=== PATIENT | female | born 1990 | race Caucasian/White ===

== ENCOUNTER → 2019-04-16 08:53 | Outpatient (BNVA) | payer BC, MEDICAID, SELFPAY | PROVIDERS: Visit Provider Nurse Practitioner Women's Health | DX: Z01.419 Encounter for gynecological examination (general) (routine) without abnormal findings (principal); Z72.0 Tobacco use | CPT/HCPCS: 88175 ==

== ENCOUNTER 2019-05-19 15:40 | Emergency (ER) | payer BC, SELFPAY ==
[2019-05-19 16:00] VITALS: BP 135/85; PULSE 80; RESP 16; TEMP 37; O2SAT 100; BMI 29.2
[2019-05-19 19:32] VITALS: BP 126/75; PULSE 77; RESP 16; O2SAT 100
--- NOTE | 2019-05-19 19:59 | CTR_ITS ---
PROCEDURE INFORMATION: Exam: CT Cervical Spine Without Contrast Exam date and time: 05/19/2019 8:37 PM Age: 29 years old Clinical indication: Neck pain; Additional info: Right hand numbness TECHNIQUE: Imaging protocol: Computed tomography images of the cervical spine without contrast. Total DLP: 592.61 mGy-cm Radiation optimization: All CT scans at this facility use at least one of these dose optimization techniques: automated exposure control; mA and/or kV adjustment per patient size (includes targeted exams where dose is matched to clinical indication); or iterative reconstruction. COMPARISON: No relevant prior studies available. FINDINGS: Vertebrae: There is no fracture the cervical spine. There is reversal of cervical curvature. Alignment is otherwise normal. C2-C3: No disc herniation. No spinal canal stenosis. No neural foraminal narrowing. C3-C4: No disc herniation. No spinal canal stenosis. No neural foraminal narrowing. C4-C5: No disc herniation. No spinal canal stenosis. No neural foraminal narrowing. C5-C6: Mild disc bulge. No central or foraminal stenosis. C6-C7: No disc herniation. No spinal canal stenosis. No neural foraminal narrowing. C7-T1: No disc herniation. No spinal canal stenosis. No neural foraminal narrowing. Soft tissues: Unremarkable. Lungs: Lung apices are normal. CT/CT cervical spin wo con* [id number] IMPRESSION: 1. No fracture or acute findings. 2. Mild C5-C6 disc bulge. 3. No central or foraminal stenosis in the cervical Radiation Dose CTDIVOL = (mGy): DLP = 592.61 (mGy-cm)
--- NOTE | 2019-05-19 20:00 | ED_ITS ---
HPI - Neck Pain/Injury General: Chief Complaint: Neck Pain/Injury Stated Complaint: NECK PAIN AND RIGHT ARM PAIN Time Seen by Provider: 05/19/19 19:54 History of Present Illness: HPI Narrative: Complains of neck pain in the right side that extends down to her right pointer finger. States it started a couple weeks ago she drove to [place] and back there was 3 weeks ago. Then she started to have some tingling and neck pain. 1 saw PCP put on prednisone dic lofenac and a muscle relaxer. Is worsened primary care provider sent her to the ER. She has good range of motion of her fingers can does have good feeling in fingers. Pain base and neck on down to the shoulder. MD complaint: neck pain and other (Down right arm) Radiation: right upper extremity Severity: mild and constant Severity scale (1-10): 4 Quality: burning Duration: constant Relieving factors: none Exacerbating factors: none Context: other (No known injury) Associated symptoms: Reports no associated symptoms; Denies headache(s) or nausea Treatments prior to arrival: prescription analgesic Review of Systems Const: Denies: fever, chills or body aches Eyes: Denies: change in vision or blurry vision ENMT: Denies: throat pain or nasal congestion Card: Denies: chest pain or shortness of breath on exertion Resp: Denies: shortness of breath, productive cough or non-productive cough GI: Denies: abdominal pain, nausea or vomiting Musc: Reports: neck pain and extremity pain (Says she has what feels like mild numbness in her fingers) Skin/Breast: Denies: rash Neuro: Denies: headache Psych: Denies: anxiety or depression Anthony/Lymph: Denies: easy bruising PFSH ED PFSH: Medical History Contraceptive management Tobacco use Surgical History (Updated 04/16/19 @ 09:26 by Savannah Jenkins APN, GLORY) H/O arthroscopy of knee (~2009) H/O section 12/14/2015--opted to Repeat; [facility] 11/25/2013--NRFHR; [place] H/O wisdom tooth extraction Social History (Updated 04/16/19 @ 09:27 by Savannah Jenkins APN, GLORY) Smoking and tobacco status: current every day smoker cigarettes Packs smoked per day: 0.5 Quit status (tobacco): has tried quititng Smoking risk assessment/counseling performed?: Yes (referred to PCP ) Tobacco counseling given: provider counseling Alcohol intake: never Physical Exam Const: COMMON NORMALS: no apparent distress, average body habitus and oriented x3 HENMT: COMMON NORMALS: normocephalic HEAD & SCALP: normal to inspection and normocephalic FACE & SINUS: normal facial exam Eye: COMMON NORMALS: conjunctivae normal GENERAL EYE: normal appearance of both eyes CONJUNCTIVA: Yes conjunctivae normal Neck/C-Spine: COMMON NORMALS: no JVD Chest: COMMONS NORMALS: inspection of chest normal Resp: COMMON NORMALS: normal respiratory effort and clear to auscultation bilaterally AUSCULTATION: clear to auscultation bilaterally Cardio: COMMON NORMALS: no JVD, regular rate and regular rhythm RATE: regular rate RHYTHM: regular rhythm GI: COMMON NORMALS: normal to inspection, nondistended, normoactive bowel sounds Extremity: COMMON NORMALS: normal to inspection and full ROM NARRATIVE EXTREMITY EXAM: Patient has tenderness from the base of neck down through the shoulder area has good range of motion of her fingers good feeling good cap refill pain goes down to the shoulder area and down her right arm. Neurologically everything appears intact. GENERAL: Yes normal exam except as noted Neuro: COMMON NORMALS: oriented x3 Course Vital Signs: Vital signs: Vital Signs Temperature 98.6 F 05/19/19 16:00 Pulse Rate 77 05/19/19 19:32 Respiratory Rate 16 05/19/19 19:32 Blood Pressure 126/75 05/19/19 19:32 Pulse Oximetry 100 05/19/19 19:32 Discharge Plan Discharge Condition: Stable Prescriptions: No Action Nexplanon 68 mg implant SUBDERMAL RF: 0 Coding Level of Care Code ED Hearing Screen Coordinator for Chg Christina
[2019-05-19 21:16] VITALS: BP 122/82; PULSE 73; RESP 18; O2SAT 96
== END 2019-05-19 21:16 | disposition home or self-care (01) ==
PROVIDERS: Emergency Provider Nurse Practitioner Family
DX: M54.2 Cervicalgia (principal); M79.601 Pain in right arm; R20.2 Paresthesia of skin; F17.210 Nicotine dependence, cigarettes, uncomplicated
CPT/HCPCS: 12345; 72125; 99281; 99282

== ENCOUNTER 2019-05-28 08:42 | Outpatient (CLI) | payer BC, SELFPAY ==
--- NOTE | 2019-05-28 08:52 | MR_ITS ---
WS: [id number] MRI CERVICAL SPINE HISTORY: CERVICAL DISC DISORDER AT C5-C6 LEVEL WITH RADICULOPATHY COMPARISON: Cervical spine CT 05/19/2019 Straightening with slight reversal normal cervical lordosis. Signal within the cervical cord is normal. Visualized posterior fossa is unremarkable. Craniocervical junction, C1 and C2 relationship, odontoid process and soft tissues are normal. C2-C3: Normal. C3-C4: Normal. C4-C5: Very slight annular disc bulging without stenosis. Slight encroachment upon the ventral thecal sac. C5-C6: Mild annular disc bulge. Shallow central disc protrusion and small bilateral foraminal osteoph ytes. C6-C7: Mild annular disc bulging. Small bilateral foraminal osteophytes. C7-T1: Normal. Paraspinal soft tissue are normal. MR/MR cervical spin wo con* [id number] IMPRESSION: 1. Very small shallow central disc protrusion at C5-6 with mild annular disc b ulging. 2. Near complete effacement of ventral CSF at C4-5 and C5-6 without significan t stenosis.
== END 2019-05-28 08:43 | disposition home or self-care (01) ==
LOC: RADWPI 08:48
PROVIDERS: PCP Nurse Practitioner Family; Visit Provider Nurse Practitioner Family
DX: M50.122 Cervical disc disorder at C5-C6 level with radiculopathy (principal); M50.222 Other cervical disc displacement at C5-C6 level
CPT/HCPCS: 72141

== ENCOUNTER 2019-06-12 14:35 | Outpatient (CLI) | payer BC, SELFPAY ==
--- NOTE | 2019-06-12 15:15 | XR_ITS ---
WS: [id number] LATERAL CERVICAL SPINE: 3 view. Lateral radiographs are performed in upright neutral, flexion and extension to the patient's toleranc e. HISTORY: Neck pain COMPARISON: None available. Straightening and slight reversal normal cervical lordosis centered near C4. Disc spaces and vertebra l body heights are normal. With flexion and extension there is no significant instability. Less than 2 mm retrolisthesis of C2 and C3 during extension. XR/XR cervical spine fl/ex [id number] IMPRESSION: No cervical spine instability.
== END 2019-06-12 14:36 | disposition home or self-care (01) ==
LOC: RADWPI 14:39
PROVIDERS: PCP Nurse Practitioner Family; Visit Provider Licensed Practical Nurse
DX: M54.2 Cervicalgia (principal)
CPT/HCPCS: 72040; 95886; 95908

== ENCOUNTER → 2019-06-19 12:16 | Outpatient (BNVA) | payer BC, MEDICAID, SELFPAY | PROVIDERS: PCP Nurse Practitioner Family; Referring Provider Licensed Practical Nurse; Visit Provider Anesthesiology Pain Medicine | DX: M54.12 Radiculopathy, cervical region (principal); F17.210 Nicotine dependence, cigarettes, uncomplicated; Z79.899 Other long term (current) drug therapy | CPT/HCPCS: 99203; 99204 ==

== ENCOUNTER 2019-06-24 06:00 | Outpatient (RCR) | payer BC, SELFPAY | END 2019-07-03 23:59 | disposition home or self-care (01) | LOC: TPT 06:00 | PROVIDERS: PCP Nurse Practitioner Family; Referring Provider Anesthesiology Pain Medicine; Visit Provider Anesthesiology Pain Medicine | DX: M54.12 Radiculopathy, cervical region (principal); M54.2 Cervicalgia | CPT/HCPCS: 97110; 97140; 97161; 97530; G0283 ==

== ENCOUNTER 2019-07-04 06:00 | Outpatient (RCR) | payer BC, SELFPAY | END 2019-08-03 23:59 | disposition home or self-care (01) | LOC: TPT 06:00 | PROVIDERS: PCP Nurse Practitioner Family; Referring Provider Anesthesiology Pain Medicine; Visit Provider Anesthesiology Pain Medicine | DX: M54.12 Radiculopathy, cervical region (principal); M54.2 Cervicalgia | CPT/HCPCS: 97032; 97110; 97140; 97530; G0283 ==

== ENCOUNTER → 2019-07-14 13:12 | Outpatient (BNVA) | payer BC, SELFPAY | PROVIDERS: PCP Nurse Practitioner Family; Visit Provider Anesthesiology Pain Medicine | DX: M50.020 Cervical disc disorder with myelopathy, mid-cervical region, unspecified level (principal); M54.12 Radiculopathy, cervical region; F17.210 Nicotine dependence, cigarettes, uncomplicated | CPT/HCPCS: 62321; 99213; J1100; J2001 ==

== ENCOUNTER 2019-08-04 06:00 | Outpatient (RCR) | payer BC, SELFPAY | END 2019-09-02 23:59 | disposition home or self-care (01) | LOC: TPT 06:00 | PROVIDERS: PCP Nurse Practitioner Family; Visit Provider Anesthesiology Pain Medicine | DX: M54.12 Radiculopathy, cervical region (principal) | CPT/HCPCS: 97110; 97140; G0283 ==

== ENCOUNTER → 2019-08-12 09:00 | Outpatient (BNVA) | payer BC, SELFPAY | PROVIDERS: PCP Nurse Practitioner Family; Visit Provider Anesthesiology Pain Medicine | DX: M50.020 Cervical disc disorder with myelopathy, mid-cervical region, unspecified level (principal); M54.12 Radiculopathy, cervical region | CPT/HCPCS: 99213 ==

== ENCOUNTER 2019-10-10 11:06 | Emergency (ER) | payer BC, SELFPAY ==
[2019-10-10 11:15] VITALS: BP 139/80; PULSE 96; RESP 18; TEMP 37.1; O2SAT 94; BMI 30.8
--- NOTE | 2019-10-10 11:28 | ED_ITS ---
HPI - Abdominal Pain General: Chief Complaint: Abdominal Pain Stated Complaint: abd pain Time Seen by Provider: 10/10/19 11:22 History of Present Illness: HPI narrative: 29-year-old female comes in complaining abdominal pain she has had this off and on for about the last 2 years she gets nauseous with it no vomiting or diarrhea begins in the epigastric right upper quadrant area and radiates around to her back in both directions she is not had any shortness of breath so had a recent upper respiratory infection she has had quite a bit of reflux she has not been taking much for this. She denies any acholic stools she does get some bilious vomit at times. MD elicited complaint: abdominal pain Pertinent past history: other (Persistent abdominal pain for the last 2 years intermittent) Onset (ago): year(s) (2) Pain Consistency: intermittent Location: Epigastric and RUQ Quality: cramping Radiation: bilateral flank and back Migration to: no migration Exacerbating factors: nothing Relieving factors: nothing Context: recent surgery/procedure Associated Symptoms: Denies bloating, chills, coffee ground emesis, constipation, diarrhea, dysuria, fever(s), hematochezia, hematemesis, melena, nausea and vomiting Review of Systems Const: Denies: fever(s), chills, body aches, change in appetite, fatigue or malaise ENMT: Denies: throat pain, ear or mastoid pain, nasal discharge or nasal congestion Card: Denies: chest pain, edema, dyspnea on exertion or orthopnea Resp: Denies: dyspnea, productive cough or non-productive cough GI: Denies: abdominal pain, nausea, vomiting, hematemesis, coffee ground emesis, diarrhea, constipation, bloating, hematochezia or melena : Denies: flank pain, difficulty voiding, dysuria, urinary frequency or urinary urgency Skin/Breast: Denies: rash or pruritus PFSH ED PFSH: Medical History Cervical disc disorder with myelopathy of mid-cervical region Contraceptive management Tobacco use Surgical History H/O arthroscopy of knee (~2009) H/O section 12/14/2015--opted to Repeat; [facility] 11/25/2013--NRFHR; [place] H/O wisdom tooth extraction Family History Mother Hypertension Family history of thyroid problem Grandmother Family history of thyroid problem MATERNAL Family/Other Family history of thyroid problem MATERNAL AUNT Patient denies medical problems Diabetes Mellitus, Heart Disease, Stroke, Hypercholesterolemia, Breast Cancer, Ovarian Cancer, Uterine Cancer, Colon Cancer Social History Smoking and tobacco status: former smoker Quit status (tobacco): has quit using tobacco Former quit date comment: JULY 0303/2019 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 Alcohol intake: never Household members: spouse and children Marital status: 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 History of recent travel: No Physical Exam Const: COMMON NORMALS: no acute distress GENERAL APPEARANCE: cooperative and comfortable ORIENTATION/CONSCIOUSNESS: Yes awake, Yes oriented to person, Yes oriented to place and Yes oriented to time HENMT: COMMON NORMALS: normocephalic and atraumatic HEAD & SCALP: normocephalic and atraumatic Eye: COMMON NORMALS: Equal, round and reactive pupils present, EOMs intact bilaterally, conjunctivae normal and no scleral icterus CONJUNCTIVA: Yes conjunctivae normal PUPIL: Yes Equal, round and reactive pupils present Neck/C-Spine: COMMON NORMALS: full ROM, no lymphadenopathy, supple and no JVD Lymph: LYMPHATIC: no lymphadenopathy noted and no lymphedema noted Resp: COMMON NORMALS: normal respiratory effort, No retractions, No use of accessory muscles and clear to auscultation bilaterally AUSCULTATION: clear to auscultation bilaterally Cardio: COMMON NORMALS: no JVD, regular rate, regular rhythm and No murmurs present (Cardio) RATE: regular rate RHYTHM: regular rhythm GI: COMMON NORMALS: Soft to palpation and No hepatosplenomegaly present AUSCULTATION: Yes normoactive bowel sounds PALPATION: Yes Soft to palpation, No Tenderness to palpation present (GI), No Guarding due to palpation present (GI) and Yes No hepatosplenomegaly present Extremity: COMMON NORMALS: normal to inspection, capillary refill normal, no clubbing, cyanosis or edema, no calf tenderness and no pedal edema Neuro: SENSORIUM/ORIENTATION: Yes oriented to person, Yes oriented to place and Yes oriented to time Skin: COMMON NORMALS: no rashes or lesions noted GENERAL SKIN EXAM: no rashes or lesions noted Course Vital Signs: Vital signs: Vital Signs Temperature 98.7 F 10/10/19 11:15 Pulse Rate 91 10/10/19 13:05 Respiratory Rate 18 10/10/19 13:05 Blood Pressure 132/76 10/10/19 13:05 Pulse Oximetry 94 10/10/19 13:05 MDM - Abdominal Pain MDM Narrative: Medical decision making narrative: Discussed findings with the patient. She has had this going on for some time is nothing acute that I can identify at this time I do think she requires further evaluation including EGD and possible HIDA scan will refer to surgery return if she has further problems start pantoprazole to try to alleviate symptoms. Lab Data: Labs: Lab Results 10/10/19 10/10/19 10/10/19 Range/Units 11:31 11:31 11:45 WBC 8.1 (4.0-10.0) 10^3/ uL RBC 4.65 (4.1-5.3) 10^6/u L Hgb 13.3 (11.5-15.3) g/dL Hct 40.7 (37.0-47.0) % MCV 87.5 (81-99) fL MCH 28.6 (28.0-34.0) pg MCHC 32.7 (30.0-36.0) g/dL RDW 11.8 L (12.1-15.1) % Plt Count 243 (130-400) 10^3/c mm MPV 11.0 H (7.4-10.4) fL Neut % (Auto) 68.2 % Lymph % (Auto) 23.1 % [place] % (Auto) 6.0 % Eos % (Auto) 2.0 % Baso % (Auto) 0.5 % Neut # (Auto) 5.49 (1.8-7.7) 10^3/u L Lymph # (Auto) 1.9 (0.8-4.8) 10^3/u L [place] # (Auto) 0.5 (0.2-0.9) 10^3/u L Eos # (Auto) 0.2 (0.0-0.8) 10^3/u L Baso # (Auto) 0.0 (0.0-0.1) 10^3/u L Nucleated RBC % (a uto) 0 % Nucleated RBCs # 0.0 /100WBC Sodium (136-145) mmol/L Potassium (3.5-5.1) mmol/L Chloride (98-107) mmol/L Carbon Dioxide (22-29) mmol/L Anion Gap (5-19) BUN (6-20) mg/dL Creatinine (0.5-0.9) mg/dL GFR Calculation (90-130) mL/min Glucose (65-115) mg/dL Calculated Osmolal ity (285-295) mOsm/k g Calcium (8.5-10.5) mg/dL Total Bilirubin (0.15-1.2) mg/dL AST (0-32) U/L ALT (0-33) U/L Alkaline Phosphata se (35-105) IU/L Total Protein (6.6-8.7) g/dL Albumin (3.5-5.2) g/dL Globulin (1.3-4.6) g/dL Lipase (13-60) U/L HCG, Qual Negative (Negative) Urine Color Yellow (Yellow) Urine Appearance Clear (CLEAR) Urine pH 5 (5-7) Ur Specific Gravit y 1.010 (1.005-1.030) Urine Protein Neg (Negative) Urine Glucose (UA) Norm (Normal) Urine Ketones Negative (Negative) Urine Blood Neg (Negative) Urine Nitrate Negative (Negative) Urine Bilirubin Neg (NEGATIVE) Urine Urobilinogen Neg (Negative) mg/dL Ur Leukocyte Nayla ase Negative (Negative) 10/10/19 Range/Units 11:45 WBC (4.0-10.0) 10^3/ uL RBC (4.1-5.3) 10^6/u L Hgb (11.5-15.3) g/dL Hct (37.0-47.0) % MCV (81-99) fL MCH (28.0-34.0) pg MCHC (30.0-36.0) g/dL RDW (12.1-15.1) % Plt Count (130-400) 10^3/c mm MPV (7.4-10.4) fL Neut % (Auto) % Lymph % (Auto) % [place] % (Auto) % Eos % (Auto) % Baso % (Auto) % Neut # (Auto) (1.8-7.7) 10^3/u L Lymph # (Auto) (0.8-4.8) 10^3/u L [place] # (Auto) (0.2-0.9) 10^3/u L Eos # (Auto) (0.0-0.8) 10^3/u L Baso # (Auto) (0.0-0.1) 10^3/u L Nucleated RBC % (a uto) % Nucleated RBCs # /100WBC Sodium 137 (136-145) mmol/L Potassium 3.9 (3.5-5.1) mmol/L Chloride 105 (98-107) mmol/L Carbon Dioxide 24 (22-29) mmol/L Anion Gap 11.9 (5-19) BUN 9 (6-20) mg/dL Creatinine 0.8 (0.5-0.9) mg/dL GFR Calculation 84.2 L (90-130) mL/min Glucose 84 (65-115) mg/dL Calculated Osmolal ity 279 L (285-295) mOsm/k g Calcium 9.8 (8.5-10.5) mg/dL Total Bilirubin 0.2 (0.15-1.2) mg/dL AST 16 (0-32) U/L ALT 16 (0-33) U/L Alkaline Phosphata se 93 (35-105) IU/L Total Protein 6.7 (6.6-8.7) g/dL Albumin 4.5 (3.5-5.2) g/dL Globulin 2.2 (1.3-4.6) g/dL Lipase 28 (13-60) U/L HCG, Qual (Negative) Urine Color (Yellow) Urine Appearance (CLEAR) Urine pH (5-7) Ur Specific Gravit y (1.005-1.030) Urine Protein (Negative) Urine Glucose (UA) (Normal) Urine Ketones (Negative) Urine Blood (Negative) Urine Nitrate (Negative) Urine Bilirubin (NEGATIVE) Urine Urobilinogen (Negative) mg/dL Ur Leukocyte Nayla ase (Negative) Discharge Plan Discharge Patient Disposition: Home Clinical Impression: Chronic gastroesophageal reflux disease, Biliary dyskinesia Condition: Stable Prescriptions: New Zofran 4 mg tablet 4 mg PO Q6H PRN (Reason: nausea and vomiting) Qty: 20 RF: 0 pantoprazole 40 mg tablet,delayed release (DR/EC) 40 mg PO QAM 56 Days Qty: 56 RF: 0 No Action Nexplanon 68 mg implant See Rx Instructions .ROUTE .COMPLEX RF: 0 Discharge Orders: Discharge Order (Routine); Ordered 10/10/19 Ordered By: Wang Sullivan Referrals: Siria De La Torre FNP [Primary Care Provider] - Discharge Diet: Clear Liquid Discharge Activity: Increase activity as tolerated Patient Instructions: Clear Liquid Diet (ED) Activity Restrictions/Additional Instructions: Case management will call to get you set up to see a surgeon for an EGD and possible HIDA scan Clear liquid diet for 24 to 48 hours then advance as tolerated avoid spicy foods meats tomato based products citrus fruits. Discharge Date/Time: 10/10/19 13:08 Coding Level of Care Code ED Safety Representative for Efreng Fwd Exam Comprehensive
[2019-10-10 11:35] LABS: Add Urine Microscopic? NO
[2019-10-10 11:39] LABS: HCG Qualitative Urine. Negative (Negative)
--- NOTE | 2019-10-10 11:39 | US_ITS ---
WS: [id number] RIGHT UPPER QUADRANT ULTRASOUND HISTORY: epigastric/RUQ pain radiating into back COMPARISON: None available. Liver: 14.1 cm in length. Normal size and echogenicity with no intrahepatic dilatation. No mass. Gallbladder: Mildly contracted gallbladder. No stones identified. CBD: 0.2 cm Pancreas: Normal size and echogenicity. Right kidney: 9.0 cm in length. Normal echogenicity with no mass or hydronephrosis. Aorta and IVC: Unremarkable. No ascites. US/US gall bladder [id number] IMPRESSION: Slightly contracted gallbladder. Otherwise negative.
[2019-10-10 11:40] LABS: Bilirubin Urine Neg (NEGATIVE); Blood Urine Neg (Negative); Glucose Urine UA Norm (Normal); Ketones Urine Negative (Negative); Leukocyte Esterase Urine Negative (Negative); Nitrate Urine Negative (Negative); Protein Urine Neg (Negative); Urine Appearance Clear (CLEAR); Urine Color Yellow (Yellow); Urobilinogen Urine Neg (Negative); pH Urine 5 (5-7)
[2019-10-10 11:55] LABS: Basophils % 0.5 %; Eosinophils # 0.2 10^3/uL (0.0-0.8); Hematocrit 40.7 % (37.0-47.0); Hemoglobin 13.3 g/dL (11.5-15.3); Lymphocytes # 1.9 10^3/uL (0.8-4.8); Lymphocytes % 23.1 %; Mean Corpuscular HGB Conc 32.7 g/dL (30.0-36.0); Mean Corpuscular Hemoglobin 28.6 pg (28.0-34.0); Mean Corpuscular Volume 87.5 fL (81-99); Monocytes # 0.5 10^3/uL (0.2-0.9); Neutrophils # 5.49 10^3/uL (1.8-7.7); Neutrophils % 68.2 %; Nucleated Red Blood Cells % 0 %; Platelet Count 243 10^3/cmm (130-400); Red Blood Count 4.65 10^6/uL (4.1-5.3); Red Cell Distribution Width 11.8 % (12.1-15.1); White Blood Count 8.1 10^3/uL (4.0-10.0)
[2019-10-10] MEDS: sodium chloride 0.9% 1,000 ML 999 ML IV (12:03)
[2019-10-10 12:06] VITALS: RESP 18
[2019-10-10] MEDS: morphine 4 mg/mL SDV 1 mL 6 MG IVP (12:06)
[2019-10-10] MEDS: ondansetron 2 mg/ML SDV 2 mL 4 MG IVP (12:07)
[2019-10-10] MEDS: lidocaine 2% viscous 15 ML, aluminum-mag hydrox-simethicon 30 ML, sucralfate oral liq 1 GM PO (12:08)
[2019-10-10 12:12] LABS: Alanine Aminotransferase 16 U/L (0-33); Albumin Level 4.5 g/dL (3.5-5.2); Alkaline Phosphatase 93 IU/L (35-105); Anion Gap 11.9 (5-19); Aspartate Amino Transferase 16 U/L (0-32); Blood Urea Nitrogen 9 mg/dL (6-20); Calcium 9.8 mg/dL (8.5-10.5); Carbon Dioxide 24 mmol/L (22-29); Chloride 105 mmol/L (98-107); Globulin 2.2 g/dL (1.3-4.6); Glomerular Filtration Rate 84.2 mL/min (90-130); Glucose 84 mg/dL (65-115); Lipase 28 U/L (13-60); Osmolality Calculated 279 mOsm/kg (285-295); Potassium 3.9 mmol/L (3.5-5.1); Sodium 137 mmol/L (136-145); Total Bilirubin 0.2 mg/dL (0.15-1.2); Total Protein 6.7 g/dL (6.6-8.7)
--- NOTE | 2019-10-10 12:55 | PC.NURSE ---
US completed patient tolerated well
[2019-10-10 13:05] VITALS: BP 132/76; PULSE 91; RESP 18; O2SAT 94
--- NOTE | 2019-10-13 12:41 | DCPLANNER ---
project management manager had message to schedule a follow up appointment for patient with general surgery. project management manager called [facility], gave clinic patients information. project management manager was told that patients information would be printed and reviewed. Clinic will call patient with appointment information.
--- NOTE | 2019-10-16 10:52 | DCPLANNER ---
Patient has a follow up appointment scheduled for , October 16, 2019 at 2:[address] Sharp. Clinic will call patient with appointment information.
--- NOTE | 2019-10-23 12:20 | DCPLANNER ---
Patient did attend appointment scheduled for 10.16.19 with Shuttle Veneering Supervisor.
== END 2019-10-10 13:08 | disposition home or self-care (01) ==
PROVIDERS: Emergency Medicine; Emergency Provider Family Medicine; PCP Nurse Practitioner Family
DX: K21.9 Gastro-esophageal reflux disease without esophagitis (principal); K82.8 Other specified diseases of gallbladder; Z87.891 Personal history of nicotine dependence
CPT/HCPCS: 12345; 36415; 76705; 80053; 81003; 81025; 83690; 85025; 96361; 96374; 96375; 99282; 99284; J2270; J2405; J7030

== ENCOUNTER 2019-10-31 09:28 | Outpatient (CLI) | payer BC, SELFPAY ==
--- NOTE | 2019-10-31 10:00 | NM_ITS ---
WS: [id number] NUCLEAR MEDICINE HIDA SCAN CLINICAL INFORMATION: epigastric pain TECHNIQUE: Following intravenous administration of 7.8 mCi of technetium 99m mebrofenin, images of th e abdomen were obtained over the course of 60 minutes. Next, gallbladder ejection fraction was determ ined by obtaining preprandial and one-hour postprandial images of the gallbladder following oral carmelo stion of Ensure. COMPARISON: None. FINDINGS: Normal hepatic uptake at 5 minutes. Gallbladder is visualized by 15 minutes. No evidence of acute cho lecystitis. Normal common bile duct. No evidence of choledocholithiasis. Normal small bowel activity. Gallbladder ejection fraction 58% within normal limits. No evidence of chronic cholecystitis. NM/NM hepatobiliary w phar* [id number] IMPRESSION: 1. No evidence of acute or chronic cholecystitis. 2. Gallbladder ejection fraction 58% within normal limits.
== END 2019-10-31 09:29 | disposition home or self-care (01) ==
LOC: NM 09:29
PROVIDERS: PCP Nurse Practitioner Family; Visit Provider Surgery
DX: R10.13 Epigastric pain (principal); Z20.828 Contact with and (suspected) exposure to other viral communicable diseases
CPT/HCPCS: 78227; 87635; A9537

== ENCOUNTER 2019-11-04 07:03 | Day surgery (SDC) | payer BC, SELFPAY ==
[2019-10-31 08:40] VITALS: BMI 29.2
[2019-11-04 07:29] VITALS: BP 108/67; PULSE 73; RESP 18; TEMP 36.1; O2SAT 99
[2019-11-04] MEDS: sodium chloride 0.9% 1,000 ML 30 ML IV (07:37)
[2019-11-04 07:38] LABS: OR HCG Qualitative Urine Negative (Negative)
--- NOTE | 2019-11-04 07:44 | P.ANESASSM_ITS ---
Pre-Anesthetic Assessment Pre-Anesthetic Assessment: Height/Weight: Height 1.52 m Weight 68.039 kg Temp Pulse Resp BP Pulse Ox 97 F L 73 18 108/67 99 11/04/19 07:29 11/04/19 07:29 11/04/19 07:29 11/04/19 07:29 11/04/19 07:29 Preop Diagnosis: pain Proposed Procedure: Operation Date: 11/04/19 08:00 Proposed Procedures p EGD 01224 R10.13(Not Applicable) - Domingo Sharp MD Familial anesthetic complications: None Last intake: Intake Last Liquid Date 11/03/19 Last Liquid Time 21:30 Last Solid Date 11/03/19 Last Solid Time 18:00 Social: Social History: No alcohol and No tobacco Exam: Pre-Anes Outpt Exam: alert, oriented x 3, clear to auscultation bilaterally and regular rate & rhythm Airway: Cervical ROM: WNL MP: 2 Dentition: Full GI: GI: GERD Anesthetic Plan: ASA status: 1 Anesthesia: MAC Risk of > 500 ml blood loss (7ml/kg in children): No Meds/Allergies Current Medications: Current Medications Generic Name Dose Route Start Last Admin Trade Name Freq PRN Reason Stop Dose Admin Sodium Chloride 1,000 mls @ 30 ml s/hr 11/04/19 07:15 11/04/19 07:37 Sodium Chloride 0.9% IV 11/05/19 07:14 30 mls/hr .Q24H CHARITY Administration PFSH Anesthesia PFSH: Medical History (Updated 10/18/19 @ 00:01 by ) Cervical disc disorder with myelopathy of mid-cervical region Surgical History H/O arthroscopy of knee (~2009) H/O section 12/14/2015--opted to Repeat; [facility] 11/25/2013--NRFHR; [place] H/O wisdom tooth extraction Family History Mother Hypertension Family history of thyroid problem Clotting disorder Grandmother Family history of thyroid problem MATERNAL Family/Other Family history of thyroid problem MATERNAL AUNT Patient denies medical problems Diabetes Mellitus, Heart Disease, Stroke, Hypercholesterolemia, Breast Cancer, Ovarian Cancer, Uterine Cancer, Colon Cancer Denies family history of Anesthesia complication Bleeding disorder Social History Smoking and tobacco status: former smoker Quit status (tobacco): has quit using tobacco Former quit date comment: JULY 0303/2019 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 Alcohol intake: never Household members: spouse and children Marital status: 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
--- NOTE | 2019-11-04 08:00 | W.PM.OPSUD ---
Surgery/Procedure H&P Update DATE OF PROCEDURE: November 04, 2019 DATE H&P PERFORMED: 10/16/19 H&P UPDATE INFORMATION: I have reviewed H&P completed within last 30 days, I have examined patient prior to procedure and No changes to prior documentation PREOP DIAGNOSIS: pain PLANNED PROCEDURE: Operation Date: 11/04/19 08:00 Proposed Procedures p EGD 35826 R10.13(Not Applicable) - Domingo Sharp MD
[2019-11-04 08:10] VITALS: BP 95/62; PULSE 73; RESP 16; TEMP 36.6; O2SAT 97
[2019-11-04 08:18] VITALS: BP 117/84; PULSE 76; RESP 16; TEMP 36.6; O2SAT 97
--- NOTE | 2019-11-04 08:52 | ANE.PACU2 ---
Inpatient post-anesthesia follow up: Airway intact: Yes Vital signs: Temperature 98 F Pulse Rate 76 Respiratory Rate 16 Blood Pressure 117/84 Pulse Oximetry 97 Oxygen Delivery Me thod Room Air Oxygen Flow Rate 2 Fraction of Inspir ed Oxygen Hydration adequate: Yes Nausea and vomiting: No Mental status: Baseline
== END 2019-11-04 08:35 | disposition home or self-care (01) ==
PROVIDERS: Anesthesiology; PCP Nurse Practitioner Family; Visit Provider Surgery
PROC: 0DJ08ZZ Inspection of Upper Intestinal Tract, Via Natural or Artificial Opening Endoscopic (ICD-10-PCS; CPT 43235; principal; 2019-11-04 08:00)
DX: R10.13 Epigastric pain (principal); K21.9 Gastro-esophageal reflux disease without esophagitis; Z87.891 Personal history of nicotine dependence
CPT/HCPCS: 12345; 43235; 81025; 84703; J2704; J3010; J7030

== ENCOUNTER → 2019-11-14 08:56 | Outpatient (BNVA) | payer BC, SELFPAY | PROVIDERS: PCP Nurse Practitioner Family; Visit Provider Internal Medicine | DX: Z11.59 Encounter for screening for other viral diseases (principal) | CPT/HCPCS: 87635 ==

== ENCOUNTER 2019-11-17 06:40 | Day surgery (SDC) | payer BC, SELFPAY ==
[2019-11-14 12:45] VITALS: BMI 30.2
[2019-11-17] VITALS (9 sets, daily range): BP systolic 112–135; BP diastolic 69–83; PULSE 60–76; RESP 18–20; TEMP 36.5–37; O2SAT 94–100
[2019-11-17 07:11] LABS: OR HCG Qualitative Urine Negative (Negative)
[2019-11-17] MEDS: sodium chloride 0.9% 1,000 ML 30 ML IV (07:12)
--- NOTE | 2019-11-17 07:55 | ANES.PREANE2 ---
Pre-Anesthetic Assessment Pre-Anesthetic Assessment: Height/Weight: Height 1.52 m Weight 70.307 kg Temp Pulse Resp BP Pulse Ox 98.1 F 72 18 135/78 98 11/17/19 07:00 11/17/19 07:00 11/17/19 07:00 11/17/19 07:00 11/17/19 07:00 Preop Diagnosis: Chronic cholecystitis Proposed Procedure: Operation Date: 11/17/19 08:15 Proposed Procedures p Laparoscopic Cholecystectomy 49076 K82.9(Not Applicable) - Domingo Sharp MD Familial anesthetic complications: None Was Beta Karen taken within 24 hours: N/A Last intake: Intake Last Liquid Date 11/16/19 Last Liquid Time 21:30 Last Solid Date 11/16/19 Last Solid Time 21:30 Social: Social History: No alcohol and No tobacco Comment: former smoker Exam: Pre-Anes Outpt Exam: alert, oriented x 3, clear to auscultation bilaterally and regular rate & rhythm Airway: Cervical ROM: WNL MP: 3 Dentition: Full Musc/skel: Comments: neck pain Anesthetic Plan: ASA status: 1 Anesthesia: General Risk of > 500 ml blood loss (7ml/kg in children): No Meds/Allergies Current Medications: Current Medications Generic Name Dose Route Start Last Admin Trade Name Freq PRN Reason Stop Dose Admin Sodium Chloride 1,000 mls @ 30 ml s/hr 11/17/19 07:00 11/17/19 07:12 Sodium Chloride 0.9% IV 11/18/19 06:59 30 mls/hr .Q24H CHARITY Administration PFSH Anesthesia PFSH: Medical History Cervical disc disorder with myelopathy of mid-cervical region Surgical History H/O arthroscopy of knee (~2009) H/O section 12/14/2015--opted to Repeat; [facility] 11/25/2013--NRFHR; [place] H/O esophagogastroduodenoscopy (11/04/19) normal H/O wisdom tooth extraction Family History Mother Hypertension Family history of thyroid problem Clotting disorder Grandmother Family history of thyroid problem MATERNAL Family/Other Family history of thyroid problem MATERNAL AUNT Patient denies medical problems Diabetes Mellitus, Heart Disease, Stroke, Hypercholesterolemia, Breast Cancer, Ovarian Cancer, Uterine Cancer, Colon Cancer Denies family history of Anesthesia complication Bleeding disorder Social History Smoking and tobacco status: former smoker Quit status (tobacco): has quit using tobacco Former quit date comment: JULY 0303/2019 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 Alcohol intake: never Household members: spouse and children Marital status: 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
--- NOTE | 2019-11-17 08:48 | W.PM.OPSUD ---
Surgery/Procedure H&P Update DATE OF PROCEDURE: November 17, 2019 DATE H&P PERFORMED: 10/16/19 H&P UPDATE INFORMATION: I have reviewed H&P completed within last 30 days, I have examined patient prior to procedure and No changes to prior documentation PREOP DIAGNOSIS: Chronic cholecystitis PLANNED PROCEDURE: Operation Date: 11/17/19 08:15 Proposed Procedures p Laparoscopic Cholecystectomy 49829 K82.9(Not Applicable) - Domingo Sharp MD
--- NOTE | 2019-11-17 10:02 | SUR.PHASEI ---
0958- ORAL AIRWAY OUT, SIMPLE MASK AT 6LPM, SAT 100%
[2019-11-17] MEDS: ondansetron 2 mg/ML SDV 2 mL 4 MG IVP (10:16)
--- NOTE | 2019-11-17 10:32 | ANE.PACU2 ---
Inpatient post-anesthesia follow up: Airway intact: Yes Vital signs: Temperature 98.6 F Pulse Rate 64 Respiratory Rate 18 Blood Pressure 118/75 Pulse Oximetry 97 Oxygen Delivery Me thod Room Air Oxygen Flow Rate 6 Fraction of Inspir ed Oxygen Hydration adequate: Yes Nausea and vomiting: No Pain level: 4 Mental status: Baseline
[2019-11-17] MEDS: HYDROcodone-acetaminophen 5-325 mg Tablet 1 TAB PO (10:35)
--- NOTE | 2019-11-17 11:27 | P.OP_ITS ---
Operative Report Date of procedure: November 17, 2019 Pre-op Diagnosis: Chronic cholecystitis Post-op diagnosis: same Procedure Done: Laparoscopic cholecystectomy Specimens removed/disposition: Gallbladder Surgeon: Domingo Sharp Anesthesia: General Estimated blood loss (mL): 5 Condition: stable Disposition: PACU Procedure: The patient was taken to the operating room and was intubated under general anesthesia. After the antibiotic had been administered, the abdomen was prepped and draped in a sterile manner. Using a #15 blade, a 1 centimeter infraumbilical curvilinear incision was made and using an open Marek technique the peritoneal cavity was entered. A 10 millimeter port was placed and 15 millimeters of pneumoperitoneum was created. A 10 millimeter, 30 degrees scope was then introduced. Three 5 millimeter ports were placed in the epigastric, midclavicular and the anterior axillary line two fingerbreadths below the costal margin on the right side under the direct visualization. Ratcheted forceps were introduced into the lateral most port and was used to retract the fundus of the gallbladder cephalad and using forceps the infundibulum of the gallbladder was retracted laterally. Using L-hook cautery the peritoneum overlying the Calot's triangle was opened medially and laterally until the cystic duct and the cystic artery were skeletonized. Dissection was carried along the body of the gallblad micki and after ensuring critical view of safety, 4 clips applied on the cystic duct and 3 clips applied on the cystic artery and cut leaving, 3 clips on the remaining portion of the duct and 2 clips on the remaining portion of the artery. The rest of the gallbladder was dissected off the liver using L-hook cautery. There was no bleeding or bile leaking noted from the gallbladder fossa and the clips appeared to be in place. An EndoCatch bag was introduced to remove the gallbladder. All the ports were removed under direct visualization and there was no bleeding noted from the port sites. The fascia of the umbilicus was closed using [id number] 0 Vicryl sutures and the subcutaneous tissue was approximated using 3-0 Vicryl sutures. The skin at all four ports were closed using 4-0 Monocryl and Dermabond. A total of 10 millimeters of 0.5% Marcaine was infiltrated around the port sites. The patient was stable throughout the procedure.
== END 2019-11-17 11:30 | disposition home or self-care (01) ==
PROVIDERS: Anesthesiology; PCP Nurse Practitioner Family; Visit Provider Surgery
PROC: 0FT44ZZ Resection of Gallbladder, Percutaneous Endoscopic Approach (ICD-10-PCS; CPT 47562; principal; 2019-11-17 08:15)
DX: K81.1 Chronic cholecystitis (principal); Z87.891 Personal history of nicotine dependence
CPT/HCPCS: 47562; 12345; 81025; 84703; 88304; 96365; 96372; 96374; J0690; J1100; J1885; J2405; J2704; J2710; J3010; J3490; J7030

== ENCOUNTER 2019-11-17 15:40 | Emergency (ER) | payer BC, SELFPAY ==
[2019-11-17 15:51] VITALS: BP 139/93; PULSE 92; RESP 14; TEMP 36.7; O2SAT 98; BMI 25.7
--- NOTE | 2019-11-17 16:01 | W.ED.ABDPA2 ---
Documented by User: CHERELLE Gardiner 11/21/19 07:04 HPI - Abdominal Pain General: Chief Complaint: Abdominal Pain Stated Complaint: ABDOMEN PAIN POST SURGERY Time Seen by Provider: 11/17/19 16:01 History of Present Illness: HPI narrative: Patient states he was released from the hospital this morning with abdominal pain. She said she was told it was just gas was given a pain pill before she left. did not chart picker pain medication to later this afternoon and gave her a pill did not help she is in a lot of pain she states patient instructed by Dr. Sharp nurse to come and check into the ER patient states she has had problems with her bowels last few weeks MD elicited complaint: abdominal pain Pertinent past history: other (Gallbladder removed yesterday) Onset (ago): hour(s) Pain Consistency: constant Location: Periumbilical Severity: severe Quality: aching and fullness Radiation: none Migration to: no migration Exacerbating factors: movement Relieving factors: nothing Context: recent surgery/procedure Associated Symptoms: Reports no associated symptoms; Denies chills, fever(s), nausea and vomiting Review of Systems Const: Denies: fever(s), chills or body aches Eyes: Denies: change in vision or blurry vision ENMT: Denies: throat pain or nasal congestion Card: Denies: chest pain or dyspnea on exertion Resp: Denies: dyspnea, productive cough or non-productive cough GI: Reports: abdominal pain; Denies: nausea or vomiting Musc: Denies: extremity pain Skin/Breast: Denies: rash Neuro: Denies: headache(s) Psych: Denies: anxiety or depression Anthony/Lymph: Denies: easy bruising PFSH ED PFSH: Medical History (Updated 11/17/19 @ 21:32 by DONAVON Yao) Cervical disc disorder with myelopathy of mid-cervical region Surgical History (Updated 11/17/19 @ 08:58 by Domingo Sharp MD) H/O arthroscopy of knee (~2009) H/O section 12/14/2015--opted to Repeat; [facility] 11/25/2013--NRFHR; [place] H/O esophagogastroduodenoscopy (11/04/19) normal H/O wisdom tooth extraction Status post laparoscopic cholecystectomy (11/17/19) Family History Mother Hypertension Family history of thyroid problem Clotting disorder Grandmother Family history of thyroid problem MATERNAL Family/Other Family history of thyroid problem MATERNAL AUNT Patient denies medical problems Diabetes Mellitus, Heart Disease, Stroke, Hypercholesterolemia, Breast Cancer, Ovarian Cancer, Uterine Cancer, Colon Cancer Denies family history of Anesthesia complication Bleeding disorder Social History Smoking and tobacco status: former smoker Quit status (tobacco): has quit using tobacco Former quit date comment: JULY 0303/2019 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 Alcohol intake: never Household members: spouse and children Marital status: 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 History of recent travel: No Physical Exam Const: COMMON NORMALS: no acute distress, average body habitus and patient oriented x3 HENMT: COMMON NORMALS: normocephalic HEAD & SCALP: normal to inspection and normocephalic FACE & SINUS: normal facial exam Eye: COMMON NORMALS: conjunctivae normal GENERAL EYE: appearance normal, both eyes and all related structures CONJUNCTIVA: Yes conjunctivae normal Neck/C-Spine: COMMON NORMALS: no JVD Chest: COMMONS NORMALS: normal inspection of the chest Resp: COMMON NORMALS: normal respiratory effort and clear to auscultation bilaterally AUSCULTATION: clear to auscultation bilaterally Cardio: COMMON NORMALS: no JVD, regular rate and regular rhythm RATE: regular rate RHYTHM: regular rhythm GI: AUSCULTATION: Yes Hypoactive bowel sounds present PALPATION: Yes Tenderness to palpation present (GI) Extremity: COMMON NORMALS: normal to inspection and full ROM Neuro: COMMON NORMALS: patient oriented x3 Course Vital Signs: Vital signs: Vital Signs Temperature 97.6 F 11/17/19 17:40 Pulse Rate 79 11/17/19 17:40 Respiratory Rate 18 11/17/19 17:40 Blood Pressure 128/74 11/17/19 17:40 Pulse Oximetry 98 11/17/19 17:40 MDM - Abdominal Pain Lab Data: Labs: Lab Results 11/17/19 11/17/19 Range/Units 16:10 16:10 WBC 15.8 H (4.0-10.0) 10^3/ uL RBC 4.80 (4.1-5.3) 10^6/u L Hgb 13.9 (11.5-15.3) g/dL Hct 42.2 (37.0-47.0) % MCV 87.9 (81-99) fL MCH 29.0 (28.0-34.0) pg MCHC 32.9 (30.0-36.0) g/dL RDW 12.4 (12.1-15.1) % Plt Count 246 (130-400) 10^3/c mm MPV 11.6 H (7.4-10.4) fL Neut % (Auto) 94.9 % Lymph % (Auto) 4.0 % [place] % (Auto) 0.6 % Eos % (Auto) 0.0 % Baso % (Auto) 0.1 % Neut # (Auto) 14.93 H (1.8-7.7) 10^3/u L Lymph # (Auto) 0.6 L (0.8-4.8) 10^3/u L [place] # (Auto) 0.1 L (0.2-0.9) 10^3/u L Eos # (Auto) 0.0 (0.0-0.8) 10^3/u L Baso # (Auto) 0.0 (0.0-0.1) 10^3/u L Nucleated RBC % (a uto) 0 % Nucleated RBCs # 0.0 /100WBC Sodium 133 L (136-145) mmol/L Potassium 4.3 (3.5-5.1) mmol/L Chloride 103 (98-107) mmol/L Carbon Dioxide 20 L (22-29) mmol/L Anion Gap 14.3 (5-19) BUN 9 (6-20) mg/dL Creatinine 0.8 (0.5-0.9) mg/dL GFR Calculation 84.2 L (90-130) mL/min Glucose 129 H (65-115) mg/dL Calculated Osmolal ity 274 L (285-295) mOsm/k g Calcium 9.1 (8.5-10.5) mg/dL Total Bilirubin 0.3 (0.15-1.2) mg/dL AST 23 (0-32) U/L ALT 22 (0-33) U/L Alkaline Phosphata se 88 (35-105) IU/L Total Protein 7.2 (6.6-8.7) g/dL Albumin 4.2 (3.5-5.2) g/dL Globulin 3.0 (1.3-4.6) g/dL Lipase 18 (13-60) U/L Discharge Plan Discharge Patient Disposition: Home Clinical Impression: Constipation Qualifiers: Constipation type: slow transit constipation Qualified Code(s): K59.01 - Slow transit constipation Abdominal pain Qualifiers: Abdominal location: generalized Qualified Code(s): R10.84 - Generalized abdominal pain Condition: Stable Prescriptions: New magnesium citrate Solution 240 ml PO DAILY Qty: 296 RF: 0 No Action Nexplanon 68 mg implant See Rx Instructions .ROUTE .COMPLEX RF: 0 ondansetron HCl 4 mg tablet 4 mg PO Q6H PRN (Reason: Nausea) RF: 0 docusate sodium [Colace] 100 mg capsule 100 mg PO BID Qty: 30 RF: 0 hydrocodone-acetaminophen [Ames] 5-325 mg tablet 1 tab PO Q6H 7 Days Qty: 20 RF: 0 Protonix 40 mg Tablet,Delayed Release (Dr/Ec) 40 mg PO DAILY RF: 0 Discharge Orders: Discharge Order (Routine); Ordered 11/17/19 Ordered By: Marj Webb Referrals: Siria De La Torre FNP [Primary Care Provider] - Discharge Diet: Advance as tolerated and Clear Liquid Discharge Activity: Limit activity as instructed Patient Instructions: Abdominal Pain - Adult, Constipation (ED), Abdominal Pain (ED) Activity Restrictions/Additional Instructions: take pain medicine as directed by Dr. 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 Comprehensive Documented by User: DONAVON Yao 11/17/19 21:32 HPI - Abdominal Pain General: Chief Complaint: Abdominal Pain Stated Complaint: ABDOMEN PAIN POST SURGERY Time Seen by Provider: 11/17/19 16:01 PFSH ED PFSH: Medical History (Updated 11/17/19 @ 21:32 by DONAVON Yao) Cervical disc disorder with myelopathy of mid-cervical region Surgical History (Updated 11/17/19 @ 08:58 by Domingo Sharp MD) H/O arthroscopy of knee (~2009) H/O section 12/14/2015--opted to Repeat; [facility] 11/25/2013--NRFHR; [place] H/O esophagogastroduodenoscopy (11/04/19) normal H/O wisdom tooth extraction Status post laparoscopic cholecystectomy (11/17/19) Family History Mother Hypertension Family history of thyroid problem Clotting disorder Grandmother Family history of thyroid problem MATERNAL Family/Other Family history of thyroid problem MATERNAL AUNT Patient denies medical problems Diabetes Mellitus, Heart Disease, Stroke, Hypercholesterolemia, Breast Cancer, Ovarian Cancer, Uterine Cancer, Colon Cancer Denies family history of Anesthesia complication Bleeding disorder Social History Smoking and tobacco status: former smoker Quit status (tobacco): has quit using tobacco Former quit date comment: JULY 0303/2019 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 Alcohol intake: never Household members: spouse and children Marital status: 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 History 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 travel: No Physical Exam Skin: COMMON NORMALS: no rashes or lesions noted GENERAL SKIN EXAM: no rashes or lesions noted OTHER: abdominal puncture incisions w/o drainage, erythema abdomen w/o aimee's sign Course Consultations: Consultation #1: Dr Woodward, surgeon - X-ray, serology results and case reviewed, no new orders - patient reports pain much improved - reviewed normal post-surgical pain to expect and to take pain medication as Rx'd - reports has Zofran at home to take for nausea Pain improved, no nausea at time of discharge BS x 4, normoactive Time: 17:30 Vital Signs: Vital signs: Vital Signs Temperature 97.6 F 11/17/19 17:40 Pulse Rate 79 11/17/19 17:40 Respiratory Rate 18 11/17/19 17:40 Blood Pressure 128/74 11/17/19 17:40 Pulse Oximetry 98 11/17/19 17:40 MDM - Abdominal Pain Differential Diagnosis: Differential diagnosis abdominal pain: Likely constipation, gastroenteritis and small bowel obstruction Lab Data: Labs: Lab Results 11/17/19 11/17/19 Range/Units 16:10 16:10 WBC 15.8 H (4.0-10.0) 10^3/ uL RBC 4.80 (4.1-5.3) 10^6/u L Hgb 13.9 (11.5-15.3) g/dL Hct 42.2 (37.0-47.0) % MCV 87.9 (81-99) fL MCH 29.0 (28.0-34.0) pg MCHC 32.9 (30.0-36.0) g/dL RDW 12.4 (12.1-15.1) % Plt Count 246 (130-400) 10^3/c mm MPV 11.6 H (7.4-10.4) fL Neut % (Auto) 94.9 % Lymph % (Auto) 4.0 % [place] % (Auto) 0.6 % Eos % (Auto) 0.0 % Baso % (Auto) 0.1 % Neut # (Auto) 14.93 H (1.8-7.7) 10^3/u L Lymph # (Auto) 0.6 L (0.8-4.8) 10^3/u L [place] # (Auto) 0.1 L (0.2-0.9) 10^3/u L Eos # (Auto) 0.0 (0.0-0.8) 10^3/u L Baso # (Auto) 0.0 (0.0-0.1) 10^3/u L Nucleated RBC % (a uto) 0 % Nucleated RBCs # 0.0 /100WBC Sodium 133 L (136-145) mmol/L Potassium 4.3 (3.5-5.1) mmol/L Chloride 103 (98-107) mmol/L Carbon Dioxide 20 L (22-29) mmol/L Anion Gap 14.3 (5-19) BUN 9 (6-20) mg/dL Creatinine 0.8 (0.5-0.9) mg/dL GFR Calculation 84.2 L (90-130) mL/min Glucose 129 H (65-115) mg/dL Calculated Osmolal ity 274 L (285-295) mOsm/k g Calcium 9.1 (8.5-10.5) mg/dL Total Bilirubin 0.3 (0.15-1.2) mg/dL AST 23 (0-32) U/L ALT 22 (0-33) U/L Alkaline Phosphata se 88 (35-105) IU/L Total Protein 7.2 (6.6-8.7) g/dL Albumin 4.2 (3.5-5.2) g/dL Globulin 3.0 (1.3-4.6) g/dL Lipase 18 (13-60) U/L Discharge Plan Discharge Patient Disposition: Home Clinical Impression: Constipation Qualifiers: Constipation type: slow transit constipation Qualified Code(s): K59.01 - Slow transit constipation Abdominal pain Qualifiers: Abdominal location: generalized Qualified Code(s): R10.84 - Generalized abdominal pain Condition: Stable Prescriptions: New magnesium citrate Solution 240 ml PO DAILY Qty: 296 RF: 0 No Action Nexplanon 68 mg implant See Rx Instructions .ROUTE .COMPLEX RF: 0 ondansetron HCl 4 mg tablet 4 mg PO Q6H PRN (Reason: Nausea) RF: 0 docusate sodium [Colace] 100 mg capsule 100 mg PO BID Qty: 30 RF: 0 hydrocodone-acetaminophen [Ames] 5-325 mg tablet 1 tab PO Q6H 7 Days Qty: 20 RF: 0 Protonix 40 mg Tablet,Delayed Release (Dr/Ec) 40 mg PO DAILY RF: 0 Discharge Orders: Discharge Order (Routine); Ordered 11/17/19 Ordered By: Marj Webb Referrals: Siria De La Torre FNP [Primary Care Provider] - Discharge Diet: Advance as tolerated and Clear Liquid Discharge Activity: Limit activity as instructed Patient Instructions: Abdominal Pain - Adult, Constipation (ED), Abdominal Pain (ED) Activity Restrictions/Additional Instructions: take pain medicine as directed by Dr. 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
--- NOTE | 2019-11-17 16:03 | XR_ITS ---
WS: [id number] EXAM: ABDOMINAL KUB DATE OF EXAMINATION: 11/17/2019, 1611 hours COMPARISON: None. HISTORY: Patient is 29 years old with postsurgical abdominal pain. Laparoscopic cholecystectomy and section. FINDINGS: Bowel gas pattern is normal except for increased stool. No calcifications are seen to suggest renal o r proximal ureteral calculi. There are 2 calcifications in the left false pelvis/deep pelvis juncture presumably phleboliths. If there is high clinical suspicion for a ureteral stone a noncontrast CT of the abdomen and pelvis would be needed for this evaluation. Clips right upper quadrant correlate wit h prior cholecystectomy changes. Solid organ silhouettes do not appear enlarged. Bone density is norm al in appearance. XR/XR KUB portable [id number] IMPRESSION: Normal bowel gas pattern. Increased stool suggesting constipation. No definite calcifications to suggest renal or ureteral calculi.
[2019-11-17 16:12] VITALS: RESP 18
[2019-11-17] MEDS: ondansetron 2 mg/ML SDV 2 mL 4 MG IVP (16:12)
[2019-11-17] MEDS: morphine 4 mg/mL SDV 1 mL IVP (16:12)
[2019-11-17 16:15] VITALS: BP 136/68; PULSE 85; RESP 18; O2SAT 96
[2019-11-17 16:16] VITALS: BP 136/68; PULSE 82; RESP 18; O2SAT 97
[2019-11-17 16:31] LABS: Basophils % 0.1 %; Hematocrit 42.2 % (37.0-47.0); Hemoglobin 13.9 g/dL (11.5-15.3); Lymphocytes # 0.6 10^3/uL (0.8-4.8); Mean Corpuscular HGB Conc 32.9 g/dL (30.0-36.0); Mean Corpuscular Volume 87.9 fL (81-99); Mean Platelet Volume 11.6 fL (7.4-10.4); Monocytes # 0.1 10^3/uL (0.2-0.9); Monocytes % 0.6 %; Neutrophils # 14.93 10^3/uL (1.8-7.7); Neutrophils % 94.9 %; Nucleated Red Blood Cells % 0 %; Platelet Count 246 10^3/cmm (130-400); Red Cell Distribution Width 12.4 % (12.1-15.1); White Blood Count 15.8 10^3/uL (4.0-10.0)
[2019-11-17 17:22] LABS: Alanine Aminotransferase 22 U/L (0-33); Albumin Level 4.2 g/dL (3.5-5.2); Alkaline Phosphatase 88 IU/L (35-105); Anion Gap 14.3 (5-19); Aspartate Amino Transferase 23 U/L (0-32); Blood Urea Nitrogen 9 mg/dL (6-20); Calcium 9.1 mg/dL (8.5-10.5); Carbon Dioxide 20 mmol/L (22-29); Chloride 103 mmol/L (98-107); Glomerular Filtration Rate 84.2 mL/min (90-130); Glucose 129 mg/dL (65-115); Lipase 18 U/L (13-60); Osmolality Calculated 274 mOsm/kg (285-295); Potassium 4.3 mmol/L (3.5-5.1); Sodium 133 mmol/L (136-145); Total Bilirubin 0.3 mg/dL (0.15-1.2); Total Protein 7.2 g/dL (6.6-8.7)
[2019-11-17 17:38] VITALS: BP 128/74; PULSE 70; RESP 18; O2SAT 96
[2019-11-17 17:40] VITALS: BP 128/74; PULSE 79; RESP 18; TEMP 36.4; O2SAT 98
== END 2019-11-17 17:46 | disposition home or self-care (01) ==
PROVIDERS: Emergency Medicine; Emergency Provider Nurse Practitioner Family; PCP Nurse Practitioner Family
DX: K59.01 Slow transit constipation (principal); Z87.891 Personal history of nicotine dependence
CPT/HCPCS: 12345; 74018; 80053; 83690; 85025; 96374; 96375; 99283; J2270; J2405

== ENCOUNTER 2020-01-13 15:53 | Outpatient (CLI) | payer BC, SELFPAY ==
[2020-01-13 16:15] LABS: Basophils % 0.4 %; Eosinophils # 0.2 10^3/uL (0.0-0.8); Eosinophils % 1.5 %; Hematocrit 42.9 % (37.0-47.0); Hemoglobin 13.9 g/dL (11.5-15.3); Lymphocytes # 2.8 10^3/uL (0.8-4.8); Lymphocytes % 28.3 %; Mean Corpuscular HGB Conc 32.4 g/dL (30.0-36.0); Mean Corpuscular Volume 89.4 fL (81-99); Monocytes # 0.5 10^3/uL (0.2-0.9); Monocytes % 5.1 %; Neutrophils # 6.36 10^3/uL (1.8-7.7); Neutrophils % 64.5 %; Nucleated Red Blood Cells % 0 %; Platelet Count 258 10^3/cmm (130-400); Red Cell Distribution Width 12.2 % (12.1-15.1); White Blood Count 9.9 10^3/uL (4.0-10.0)
[2020-01-13 16:37] LABS: Alanine Aminotransferase 18 U/L (0-33); Albumin Level 4.3 g/dL (3.5-5.2); Alkaline Phosphatase 110 IU/L (35-105); Anion Gap 15.1 (5-19); Aspartate Amino Transferase 17 U/L (0-32); Blood Urea Nitrogen 7 mg/dL (6-20); Calcium 9.1 mg/dL (8.5-10.5); Carbon Dioxide 23 mmol/L (22-29); Chloride 103 mmol/L (98-107); Glomerular Filtration Rate 98.3 mL/min (90-130); Glucose 87 mg/dL (65-115); Lipase 28 U/L (13-60); Osmolality Calculated 281 mOsm/kg (285-295); Potassium 4.1 mmol/L (3.5-5.1); Sodium 137 mmol/L (136-145); Total Bilirubin 0.3 mg/dL (0.15-1.2); Total Protein 7.3 g/dL (6.6-8.7)
== END 2020-01-13 15:54 | disposition home or self-care (01) ==
LOC: LAB 15:56
PROVIDERS: PCP Nurse Practitioner Family; Visit Provider Surgery
DX: R10.13 Epigastric pain (principal)
CPT/HCPCS: 36415; 80053; 83690; 85025

== ENCOUNTER → 2020-02-17 14:34 | Outpatient (BNVA) | payer BC, OTHER, SELFPAY | PROVIDERS: PCP Nurse Practitioner Family; Visit Provider Nurse Practitioner Family | DX: Z20.828 Contact with and (suspected) exposure to other viral communicable diseases (principal); B34.9 Viral infection, unspecified | CPT/HCPCS: 87635 ==

== ENCOUNTER → 2020-09-08 13:24 | Outpatient (BNVA) | payer BC, SELFPAY | PROVIDERS: PCP Nurse Practitioner Family; Visit Provider Specialist | DX: G43.711 Chronic migraine without aura, intractable, with status migrainosus (principal); Z71.89 Other specified counseling; Z87.891 Personal history of nicotine dependence | CPT/HCPCS: 99204 ==

== ENCOUNTER 2020-10-04 07:45 | Outpatient (CLI) | payer BC, MEDICAID, SELFPAY ==
--- NOTE | 2020-10-04 08:00 | MR_ITS ---
WS: [id number] MRI HEAD WITHOUT CONTRAST TECHNIQUE: Sagittal T1, T2 axial, T2 axial FLAIR, axial and coronal T1 images, axial susceptibility w eighted imaging, axial diffusion weighted images, and coronal T2 images were obtained. CLINICAL INFORMATION: R51.9 - Headache, unspecified COMPARISON: None. FINDINGS: No evidence of restricted diffusion to suggest acute ischemia. Ventricular system and basal cisterns are patent. No suspicious intracranial signal abnormalities.Single punctate focus of T2 hyperintensit y right frontal white matter of doubtful clinical significance but can be seen with migraine headache s. Normal luu-white differentiation. Normal posterior fossa. Normal vascular flow voids at the skull base. No extra-axial fluid collections. Trace mucosal thickening paranasal sinuses. Mild mucosal thi ckening in the mastoid air cells. No hemosiderin on susceptibly weighted images. Normal cerebellar tonsils. Visualized upper cervical c anal is patent. Normal optic chiasm and pituitary infundibulum. Temporal lobes and hippocampal format ions are normal in appearance. Normal cavernous sinuses and Meckel's cave. MR/MR head wo con* [id number] IMPRESSION: 1. No evidence of restricted diffusion to suggest acute ischemia. 2. No suspicious intracranial signal abnormalities. 3. Single focus of T2 hyperintensity right frontal white matter of doubtful cl inical significance but can be seen with migraine headaches. 4. Temporal lobes and hippocampal formations are normal in appearance. 5. No hemosiderin on the susceptibly weighted images.
== END 2020-10-04 07:46 | disposition home or self-care (01) ==
LOC: RADSHAW 07:47
PROVIDERS: PCP Nurse Practitioner Family; Visit Provider Specialist
DX: R51.9 Headache, unspecified (principal)
CPT/HCPCS: 70551

== ENCOUNTER 2020-10-05 12:59 | Outpatient (CLI) | payer BC, MEDICAID, SELFPAY ==
--- NOTE | 2020-10-05 13:15 | XR_ITS ---
WS: [id number] Chest 2 views, 10/05/2020 Clinical Data: DYSPNEA Comparison: None. Findings: No nodules, masses or effusions are seen. The heart is normal. The pulmonary vascularity is not increased. No pneumonia or pneumothorax is seen. There are clips in the right upper quadrant fro m a cholecystectomy. XR/XR chest 2V* [id number] Impression: Negative chest.
== END 2020-10-05 13:00 | disposition home or self-care (01) ==
PROVIDERS: PCP Nurse Practitioner Family; Visit Provider Nurse Practitioner Family
DX: R06.00 Dyspnea, unspecified (principal)
CPT/HCPCS: 71046

== ENCOUNTER 2021-03-28 11:08 | Emergency (ER) | payer MEDICAID, SELFPAY ==
[2021-03-28 11:19] VITALS: BP 138/82; PULSE 97; RESP 16; TEMP 36.6; O2SAT 98; BMI 31.2
--- NOTE | 2021-03-28 11:29 | W.ED.GENADLT ---
HPI - General Adult General: Chief complaint: General Medical Stated complaint: abd pains lower back pains History of Present Illness: HPI narrative: Patient states she has had intermittent pain in her foot bilateral flanks over the last year since she has had her gallbladder removed. She says the pain is similar to when she had her bad gallbladder. Says she has followed up with her surgeon he is put her on Protonix and that has not helped. She says she does not have reflux. Patient denies any fever chills shortness of breath or chest pains. She says hurts all way around her flank into her abdomen and into her groin at times patient denies any vaginal discharge. PFSH ED PFSH: Medical History Cervical disc disorder with myelopathy of mid-cervical region GERD (gastroesophageal reflux disease) Surgical History H/O arthroscopy of knee (~2009) H/O section 12/14/2015--opted to Repeat; [facility] 11/25/2013--[facility]; [place] H/O esophagogastroduodenoscopy (11/04/19) normal H/O wisdom tooth extraction Status post laparoscopic cholecystectomy (11/17/19) Family History Mother Hypertension Family history of thyroid problem Clotting disorder Grandmother Family history of thyroid problem MATERNAL Family/Other Family history of thyroid problem MATERNAL AUNT Patient denies medical problems Diabetes Mellitus, Heart Disease, Stroke, Hypercholesterolemia, Breast Cancer, Ovarian Cancer, Uterine Cancer, Colon Cancer Denies family history of Anesthesia complication Bleeding disorder Social History Smoking and tobacco status: former smoker Quit status (tobacco): has quit using tobacco Former quit date comment: JULY 0303/2019 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 Alcohol intake: never Household members: spouse and children Marital status: 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 Due to current ED wait time patient will be placed in waiting room until a room becomes available. Explained to patient he/she will be seen in order of severity. Patient is currently safe to wait in the waiting room until we can get them placed. Patient informed that if condition worsens at any time to please let the front desk officer know. Patient does not appear in any acute distress at 1130. Patient has had this pain for well over a year that comes intermittently. Patient just obtained insurance and not able to get into primary care provider yet. Discharge Plan Discharge Prescriptions: No Action Nexplanon 68 mg implant See Rx Instructions .ROUTE .COMPLEX RF: 0 melatonin 3 mg capsule 3 mg PO DAILY RF: 0 tizanidine 4 mg capsule 4 mg PO ONCE PRNRF: 0 topiramate [Topamax] 50 mg tablet 50 mg PO DAILY RF: 0 Chantix Continuing Month Box 1 mg tablet 1 mg PO BID RF: 0 Protonix 40 mg tablet,delayed release (DR/EC) 40 mg PO DAILY Qty: 90 RF: 1 Coding Level of Care Code ED Template Worker for Morro Vasquez
[2021-03-28 11:45] LABS: HCG Qualitative Urine. Negative (Negative)
--- NOTE | 2021-03-28 14:04 | PC.NURSE ---
this pt was seen and discharged by SUPERVISOR STONE from waiting room. No nursing assessment completed
[2021-03-28 14:39] LABS: Add Urine Culture? Yes; Add Urine Microscopic? YES; Bacteria Urine 4+ /hpf; Bilirubin Urine Neg (Negative); Blood Urine 2+ (Negative); Glucose Urine UA Norm (Normal); Ketones Urine Negative (Negative); Leukocyte Esterase Urine Trace (Negative); Nitrate Urine Positive (Negative); Protein Urine Neg (Negative); RBC Urine 0-4 /hpf (0-2); Specific Gravity, Urine 1.015 (1.005-1.030); Urine Appearance SL Hazy (CLEAR); Urine Color Yellow (Yellow); Urobilinogen Urine Norm (Negative); WBC Urine 40-55 /hpf (0-5); pH Urine 6 (5-7)
== END 2021-03-28 14:03 | disposition home or self-care (01) ==
PROVIDERS: Emergency Medicine; Emergency Provider Family Medicine; PCP Family Medicine Adult Medicine
DX: R10.9 Unspecified abdominal pain (principal); M54.50 Low back pain, unspecified; Z87.891 Personal history of nicotine dependence
CPT/HCPCS: 81001; 81025; 87077; 87086; 87186

== ENCOUNTER 2021-03-28 14:50 | Emergency (ER) | payer MEDICAID, SELFPAY ==
--- NOTE | 2021-03-28 15:04 | W.ED.GENADLT ---
HPI - General Adult General: Chief complaint: Abdominal Pain Stated complaint: STOMACH PAINS Time Seen by Provider: 03/28/21 16:01 History of Present Illness: HPI narrative: Patient comes back after visit to the urgent care. Patient chose to go to urgent care on her own volition. She was not referred to the urgent care. Urgent care center sent patient back up here for evaluation.. Labs were reordered. Patient has had a cholecystectomy and has had 2 C-sections. This pain that she says is been intermittent over the last year. Worse over the last 2 months. Associated symptoms: Deny chest pain, dyspnea, headache(s), nausea, rash or vomiting Review of Systems Const: Denies: fever(s), chills or body aches Eyes: Denies: change in vision or blurry vision ENMT: Denies: throat pain or nasal congestion Card: Denies: chest pain or dyspnea on exertion Resp: Denies: dyspnea, productive cough or non-productive cough GI: Reports: abdominal pain and change in stool character; Denies: nausea or vomiting Musc: Denies: extremity pain Skin/Breast: Denies: rash Neuro: Denies: headache(s) Psych: Denies: anxiety or depression Anthony/Lymph: Denies: easy bruising PFSH ED PFSH: Medical History Cervical disc disorder with myelopathy of mid-cervical region GERD (gastroesophageal reflux disease) Surgical History H/O arthroscopy of knee (~2009) H/O section 12/14/2015--opted to Repeat; [facility] 11/25/2013--[facility]; [place] H/O esophagogastroduodenoscopy (11/04/19) normal H/O wisdom tooth extraction Status post laparoscopic cholecystectomy (11/17/19) Family History Mother Hypertension Family history of thyroid problem Clotting disorder Grandmother Family history of thyroid problem MATERNAL Family/Other Family history of thyroid problem MATERNAL AUNT Patient denies medical problems Diabetes Mellitus, Heart Disease, Stroke, Hypercholesterolemia, Breast Cancer, Ovarian Cancer, Uterine Cancer, Colon Cancer Denies family history of Anesthesia complication Bleeding disorder Social History Smoking and tobacco status: current every day smoker Quit status (tobacco): has quit using tobacco Former quit date comment: JULY 0303/2019 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 Alcohol intake: never Household members: spouse and children Marital status: 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 History 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 travel: No Physical Exam Const: COMMON NORMALS: no acute distress, average body habitus and patient oriented x3 HENMT: COMMON NORMALS: normocephalic HEAD & SCALP: normal to inspection and normocephalic FACE & SINUS: normal facial exam Eye: COMMON NORMALS: conjunctivae normal GENERAL EYE: appearance normal, both eyes and all related structures CONJUNCTIVA: Yes conjunctivae normal Neck/C-Spine: COMMON NORMALS: no JVD Chest: COMMONS NORMALS: normal inspection of the chest Resp: COMMON NORMALS: normal respiratory effort and clear to auscultation bilaterally AUSCULTATION: clear to auscultation bilaterally Cardio: COMMON NORMALS: no JVD, regular rate and regular rhythm RATE: regular rate RHYTHM: regular rhythm GI: INSPECTION: Yes normal to inspection AUSCULTATION: Yes normoactive bowel sounds PALPATION: Yes Tenderness to palpation present (GI) (Epigastric, no flank pain) Extremity: COMMON NORMALS: normal to inspection and full ROM Neuro: COMMON NORMALS: patient oriented x3 Course Vital Signs: Vital signs: Vital Signs Temperature 98.4 F 03/28/21 15:49 Pulse Rate 87 03/28/21 15:49 Respiratory Rate 18 03/28/21 15:49 Blood Pressure 137/86 03/28/21 15:49 Pulse Oximetry 99 03/28/21 15:49 Discharge Plan Discharge Prescriptions: No Action Nexplanon 68 mg implant See Rx Instructions .ROUTE .COMPLEX RF: 0 Protonix 40 mg tablet,delayed release (DR/EC) 40 mg PO DAILY Qty: 90 RF: 1 Coding Level of Care Code ED Industrial Insulator for Morro Vasquez
[2021-03-28 15:49] VITALS: BP 137/86; PULSE 87; RESP 18; TEMP 36.9; O2SAT 99; BMI 31.7
[2021-03-28 16:22] LABS: Basophils % 0.3 %; Eosinophils # 0.1 10^3/uL (0.0-0.8); Hematocrit 43.9 % (37.0-47.0); Hemoglobin 14.9 g/dL (11.5-15.3); Lymphocytes # 2.3 10^3/uL (0.8-4.8); Lymphocytes % 22.8 %; Mean Corpuscular HGB Conc 33.9 g/dL (30.0-36.0); Mean Corpuscular Volume 85.6 fl (81-99); Mean Platelet Volume 12.5 fL (7.4-10.4); Monocytes # 0.4 10^3/uL (0.2-0.9); Monocytes % 4.1 %; Neutrophils # 7.07 10^3/uL (1.8-7.7); Neutrophils % 71.5 %; Nucleated Red Blood Cells % 0 %; Platelet Count 163 10^3/cmm (130-400); Red Blood Count 5.13 10^6/uL (4.1-5.3); Red Cell Distribution Width 12.8 % (12.1-15.1); White Blood Count 9.9 10^3/uL (4.0-10.0)
[2021-03-28] MEDS: lidocaine 2% viscous 15 ML, aluminum-mag hydrox-simethicon 30 ML, sucralfate oral liq 1 GM PO (16:35)
[2021-03-28 16:56] LABS: Slide Review Slide Review Perform
[2021-03-28 16:57] LABS: Alanine Aminotransferase 19 U/L (0-33); Albumin Level 4.6 g/dL (3.5-5.2); Alkaline Phosphatase 149 IU/L (35-105); Anion Gap 20.2 (5-19); Aspartate Amino Transferase 19 U/L (0-32); Blood Urea Nitrogen 6 mg/dL (6-20); Calcium 10.1 mg/dL (8.5-10.5); Carbon Dioxide 21 mmol/L (22-29); Chloride 102 mmol/L (98-107); Globulin 2.5 g/dL (1.3-4.6); Glomerular Filtration Rate 115.9 mL/min (90-130); Glucose 74 mg/dL (65-115); Lipase 23 U/L (13-60); Osmolality Calculated 284 mOsm/kg (285-295); Potassium 4.2 mmol/L (3.5-5.1); Sodium 139 mmol/L (136-145); Total Bilirubin 0.3 mg/dL (0.15-1.2); Total Protein 7.1 g/dL (6.6-8.7)
[2021-03-28 17:39] VITALS: BP 132/84; PULSE 84; RESP 18; TEMP 36.8; O2SAT 99
== END 2021-03-28 17:41 | disposition home or self-care (01) ==
PROVIDERS: Emergency Provider Nurse Practitioner Family; PCP Nurse Practitioner Family
DX: R10.9 Unspecified abdominal pain (principal); F17.210 Nicotine dependence, cigarettes, uncomplicated
CPT/HCPCS: 80053; 83690; 85025; 99283

== ENCOUNTER → 2021-07-07 14:14 | Outpatient (BNVA) | payer MEDICAID, SELFPAY | PROVIDERS: PCP Nurse Practitioner Family; Visit Provider Internal Medicine | DX: E06.3 Autoimmune thyroiditis (principal); F17.210 Nicotine dependence, cigarettes, uncomplicated | CPT/HCPCS: 99204 ==

== ENCOUNTER 2021-12-06 12:33 | Outpatient (CLI) | payer MEDICAID, SELFPAY ==
--- NOTE | 2021-12-06 12:45 | XR_ITS ---
WS: [id number] XR knee RT 3V* [id number] REASON FOR EXAM: R KNEE JOINT PAIN FINDINGS: Joint spaces of the knee are intact and well preserved. No fracture or other focal bone abnormality is identified. No soft tissue abnormality is identified. XR/XR knee RT 3V* [id number] IMPRESSION: No significant bony or joint abnormality identified.
== END 2021-12-06 12:34 | disposition home or self-care (01) ==
LOC: RAD 12:36
PROVIDERS: PCP Nurse Practitioner Family; Visit Provider Nurse Practitioner Family
DX: M25.561 Pain in right knee (principal)
CPT/HCPCS: 73562

== ENCOUNTER → 2022-01-11 13:20 | Outpatient (BNVA) | payer MEDICAID, SELFPAY | PROVIDERS: PCP Nurse Practitioner Family; Visit Provider Specialist | DX: M25.561 Pain in right knee (principal) | CPT/HCPCS: 73560; 73565 ==

== ENCOUNTER 2022-01-30 16:55 | Outpatient (CLI) | payer MEDICAID, SELFPAY ==
[2022-01-30 21:34] LABS: Free T4 Free Thyroxine 1.07 ng/dL (0.82-1.77); Thyroid Stimulating Hormone 2.63 uIU/mL (0.27-4.20)
== END 2022-01-30 16:56 | disposition home or self-care (01) ==
LOC: LAB 16:59
PROVIDERS: PCP Nurse Practitioner Family; Visit Provider Internal Medicine
DX: E06.3 Autoimmune thyroiditis (principal)
CPT/HCPCS: 84439; 84443

== ENCOUNTER 2022-02-28 11:10 | Emergency (ER) | payer MEDICAID, SELFPAY ==
[2022-02-28] VITALS (24 sets, daily range): BP systolic 128–170; BP diastolic 84–107; PULSE 72–87; RESP 13–34; TEMP 36.8; O2SAT 96–100; BMI 32.2
--- NOTE | 2022-02-28 15:21 | XR_ITS ---
WS: [id number] Portable AP upright chest, 02/28/2022 Clinical Data: dyspnea/cough Comparison: PA and lateral chest, 10/05/2020 Findings: No nodules, masses or effusions are seen. The heart is normal. The pulmonary vascularity is not increased. No pneumonia or pneumothorax is seen. There are monitor leads on the chest wall. Ther e are clips in the right upper quadrant from a cholecystectomy. XR/XR chest 1V portable [id number] Impression: Negative chest.
--- NOTE | 2022-02-28 15:22 | ECG_ITS ---
[facility] Test Date: 2022-02-28 Pat Name: Lena Grimaldo Department: Room: Gender: Female Fluorescent Lighting Model Maker: : 1990 Requested By: Wang Soto Order Number: [id number] Althea MD: Saravanan Malone M.D. Measurements Intervals Chandler Rate: 73 P: 16 TN: 134 QRS: 25 QRSD: 93 T: 26 QT: 366 QTc: 406 Interpretive Statements SINUS RHYTHM POSSIBLE RIGHT VENTRICULAR CONDUCTION DELAY [RSR (QR) IN V1/V2] No previous ECG available for comparison Electronically Signed On 02-28-2022 16:15:47 PROFESSOR OF BIOLOGY by Saravanan Malone M.D. [id number]
--- NOTE | 2022-02-28 15:37 | ED_ITS ---
HPI - General Adult General: Chief complaint: General Medical Stated complaint: High Blood pressure Time Seen by Provider: 02/28/22 15:21 Source: patient Mode of arrival: ambulatory History of Present Illness: 32-year-old female is complaining of elevated blood pressure shortness of breath sweats. He has not had a cath. No loss of vision no difficulty with speech or balance. Onset (ago): hour(s) Severity: moderate Quality: aching Pain Consistency: constant Relieving factors: none Exacerbating factors: none Associated symptoms: Deny chest pain, confusion, cough, diaphoresis, decreased appetite, dyspnea, fevers/chills, headache(s), malaise, nausea, rash, palpitations, seizures, short of breath, syncope, vomiting or weakness Treatments prior to arrival: none Review of Systems Const: Denies: fever(s), chills, malaise or diaphoresis ENMT: Denies: throat pain, ear or mastoid pain, nasal discharge or nasal congestion Card: Denies: chest pain, palpitations, irregular heart rhythm, edema or syncope Resp: Denies: dyspnea, productive cough or non-productive cough GI: Denies: abdominal pain, nausea or vomiting : Denies: flank pain, difficulty voiding, dysuria, urinary frequency or urinary urgency Musc: Denies: neck pain or back pain Skin/Breast: Denies: rash Neuro: Denies: headache(s) or confusion PFSH ED PFSH: Medical History Cervical disc disorder with myelopathy of mid-cervical region GERD (gastroesophageal reflux disease) Surgical History H/O arthroscopy of knee (~2009) H/O section 12/14/2015--opted to Repeat; [facility] 11/25/2013--[facility]; [place] H/O esophagogastroduodenoscopy (11/04/19) normal H/O wisdom tooth extraction Status post laparoscopic cholecystectomy (11/17/19) Family History Mother Hypertension Family history of thyroid problem Clotting disorder Grandmother Family history of thyroid problem MATERNAL Family/Other Family history of thyroid problem MATERNAL AUNT Patient denies medical problems Diabetes Mellitus, Heart Disease, Stroke, Hypercholesterolemia, Breast Cancer, Ovarian Cancer, Uterine Cancer, Colon Cancer Denies family history of Anesthesia complication Bleeding disorder Social History Smoking and tobacco status: current every day smoker Quit status (tobacco): has quit using tobacco Former quit date comment: JULY 0303/2019 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 Alcohol intake: never Household members: spouse and children Marital status: 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 History 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 travel: No Physical Exam Const: COMMON NORMALS: no acute distress GENERAL APPEARANCE: cooperative and comfortable ORIENTATION/CONSCIOUSNESS: Yes awake, Yes oriented to person, Yes oriented to place and Yes oriented to time HENMT: COMMON NORMALS: normocephalic, atraumatic and hearing grossly normal bilaterally HEAD & SCALP: normocephalic and atraumatic Resp: COMMON NORMALS: normal respiratory effort, No retractions, No use of accessory muscles and clear to auscultation bilaterally AUSCULTATION: clear to auscultation bilaterally Cardio: COMMON NORMALS: regular rate, regular rhythm and No murmurs present (Cardio) RATE: regular rate RHYTHM: regular rhythm GI: COMMON NORMALS: Soft to palpation and No hepatosplenomegaly present AUSCULTATION: Yes normoactive bowel sounds PALPATION: Yes Soft to palpation, No Tenderness to palpation present (GI), No Guarding due to palpation present (GI) and Yes No hepatosplenomegaly present Extremity: COMMON NORMALS: normal to inspection, capillary refill normal, no clubbing, cyanosis or edema, no calf tenderness and no pedal edema Neuro: SENSORIUM/ORIENTATION: Yes oriented to person, Yes oriented to place and Yes oriented to time Skin: COMMON NORMALS: no rashes or lesions noted GENERAL SKIN EXAM: no juan f hes or lesions noted Course Vital Signs: Vital signs: Vital Signs Temperature 98.3 F 02/28/22 11:51 Pulse Rate 87 02/28/22 17:40 Respiratory Rate 13 02/28/22 17:40 Blood Pressure 128/84 02/28/22 17:45 Pulse Oximetry 96 02/28/22 17:35 Oxygen Delivery Me thod 02/28/22 16:00 MDM - General Adult Medical Decision Making Symptoms resolved and improved his blood pressure improved. Patient given amlodipine 5 mg he is feeling much better will discharge home on same follow-up with primary care doctor in 7 to 10 days to reevaluate blood pressure Medical Records I reviewed the patient's medical records. Lab Data I reviewed the patient's lab results. 02/28/22 16:38 02/28/22 16:38 Radiology Impressions Chest X-Ray 02/28/22 15:21 Impression: Negative chest. Laboratory Results WBC 10.5 10^3/uL (4.0-10.0) H 02/28/22 16:38 RBC 4.93 10^6/uL (4.1-5.3) 02/28/22 16:38 Hgb 14.3 g/dL (11.5-15.3) 02/28/22 16:38 Hct 42.7 % (37.0-47.0) 02/28/22 16:38 MCV 86.6 fl (81-99) 02/28/22 16:38 MCH 29.0 pg (28.0-34.0) 02/28/22 16:38 MCHC 33.5 g/dL (30.0-36.0) 02/28/22 16:38 RDW 12.0 % (12.1-15.1) L 02/28/22 16:38 Plt Count 276 10^3/cmm (130-400) 02/28/22 16:38 MPV 10.8 fL (7.4-10.4) H 02/28/22 16:38 Neut % (Auto) 61.9 % 02/28/22 16:38 Lymph % (Auto) 31.0 % 02/28/22 16:38 [place] % (Auto) 4.8 % 02/28/22 16:38 Eos % (Auto) 1.7 % 02/28/22 16:38 Baso % (Auto) 0.4 % 02/28/22 16:38 Neut # (Auto) 6.47 10^3/uL (1.8-7.7) 02/28/22 16:38 Lymph # (Auto) 3.2 10^3/uL (0.8-4.8) 02/28/22 16:38 [place] # (Auto) 0.5 10^3/uL (0.2-0.9) 02/28/22 16:38 Eos # (Auto) 0.2 10^3/uL (0.0-0.8) 02/28/22 16:38 Baso # (Auto) 0.0 10^3/uL (0.0-0.1) 02/28/22 16:38 Nucleated RBC % (auto) 0 % 02/28/22 16:38 Nucleated RBCs # 0.0 /100WBC 02/28/22 16:38 Sodium 134 mmol/L (136-145) L 02/28/22 16:38 Potassium 4.1 mmol/L (3.5-5.1) 02/28/22 16:38 Chloride 101 mmol/L (98-107) 02/28/22 16:38 Carbon Dioxide 26 mmol/L (22-29) 02/28/22 16:38 Anion Gap 11.1 (5-19) 02/28/22 16:38 BUN 8 mg/dL (6-20) 02/28/22 16:38 Creatinine 0.6 mg/dL (0.5-0.9) 02/28/22 16:38 GFR Calculation 115.1 mL/min (90-130) 02/28/22 16:38 Glucose 85 mg/dL (65-115) 02/28/22 16:38 Calculated Osmolality 276 mOsm/kg (285-295) L 02/28/22 16:38 Calcium 9.5 mg/dL (8.5-10.5) 02/28/22 16:38 Discharge Plan Discharge Patient Disposition: Home Clinical Impression: Hypertension Condition: Stable Prescriptions: New amlodipine 5 mg tablet 5 mg PO DAILY Qty: 30 0RF No Action Nexplanon 68 mg implant See Rx Instructions .ROUTE .COMPLEX Rx Instructions: IMPLANTED in FEBRUARY. venlafaxine 75 mg tablet 75 mg PO DAILY ondansetron HCl 4 mg tablet 4 mg PO Q8H PRN tizanidine 4 mg capsule 4 mg PO TID PRN meloxicam 15 mg tablet 15 mg PO DAILY Qty: 30 1RF varenicline [Chantix] 1 mg tablet 1 mg PO DAILY amoxicillin 875 mg tablet 875 mg PO BID 7 Days Qty: 14 0RF levothyroxine 25 mcg tablet 25 mcg PO DAILY Qty: 90 3RF Rx Instructions: take 1/2 tablet once daily Discharge Orders: Discharge ED (Routine); Ordered 02/28/22 Ordered By: Wang Sullivan Referrals: Siria De La Torre FNP [Primary Care Provider] - Discharge Diet: Usual diet Discharge Activity: Increase activity as tolerated Patient Instructions: Opioid Safety, Pain Management Activity Restrictions/Additional Instructions: You are seen today for hypertension. Labs and EKG were normal. Starttaking amlodipine 5mg daily. Recheck with your primary care doctor within 7 to 10 days to reevaluate blood pressure Coding Level of Care Code ED Service Desk Technician for Chg Christina
[2022-02-28] MEDS: amlodipine 5 mg Tablet PO (15:58)
[2022-02-28 16:47] LABS: Basophils % 0.4 %; Eosinophils # 0.2 10^3/uL (0.0-0.8); Eosinophils % 1.7 %; Hematocrit 42.7 % (37.0-47.0); Hemoglobin 14.3 g/dL (11.5-15.3); Lymphocytes # 3.2 10^3/uL (0.8-4.8); Mean Corpuscular HGB Conc 33.5 g/dL (30.0-36.0); Mean Corpuscular Volume 86.6 fl (81-99); Mean Platelet Volume 10.8 fL (7.4-10.4); Monocytes # 0.5 10^3/uL (0.2-0.9); Monocytes % 4.8 %; Neutrophils # 6.47 10^3/uL (1.8-7.7); Neutrophils % 61.9 %; Nucleated Red Blood Cells % 0 %; Platelet Count 276 10^3/cmm (130-400); Red Blood Count 4.93 10^6/uL (4.1-5.3); White Blood Count 10.5 10^3/uL (4.0-10.0)
[2022-02-28 17:10] LABS: Anion Gap 11.1 (5-19); Blood Urea Nitrogen 8 mg/dL (6-20); Calcium 9.5 mg/dL (8.5-10.5); Carbon Dioxide 26 mmol/L (22-29); Chloride 101 mmol/L (98-107); Glomerular Filtration Rate 115.1 mL/min (90-130); Glucose 85 mg/dL (65-115); Osmolality Calculated 276 mOsm/kg (285-295); Potassium 4.1 mmol/L (3.5-5.1); Sodium 134 mmol/L (136-145)
== END 2022-02-28 17:48 | disposition home or self-care (01) ==
PROVIDERS: Emergency Provider Family Medicine; PCP Nurse Practitioner Family
DX: I10 Essential (primary) hypertension (principal); F17.210 Nicotine dependence, cigarettes, uncomplicated
CPT/HCPCS: 36415; 71045; 80048; 85025; 93005; 99285

== ENCOUNTER 2022-03-08 13:41 | Emergency (ER) | payer MEDICAID, SELFPAY ==
[2022-03-08] VITALS (46 sets, daily range): BP systolic 117–146; BP diastolic 76–103; PULSE 84–110; RESP 7–38; TEMP 36.7; O2SAT 83–100; BMI 32.2
--- NOTE | 2022-03-08 13:43 | W.ED.CHESTPA ---
HPI - Chest Pain General: Chief Complaint: Chest Pain Stated Complaint: Chest Pain Time Seen by Provider: 03/08/22 13:42 History of Present Illness: Ms. Grimaldo is a 32-year-old lady with history of hypertension, Lacey's, headache disorder, psychiatric disorder presenting to the emergency department due to generalized illness. She reports difficulty controlling blood pressure for approximately 2 weeks and intermittent chest discomfort. Over the past few days more specifically today she has developed significant generalized weakness. She denies focal infectious symptoms with exception of some nausea and diarrhea as well as vomiting a few days ago though this is improved. Intensity symptoms is moderate to severe. Course has worsened. No other specific changes in health, exacerbating, or alleviating factors identified. Onset (ago): week(s) Timing of current episode: increasing Pain location: substernal Pain radiation: none Severity: moderate Quality: tightness Relieving factors: nothing Exacerbating factors: nothing Associated symptoms: Reports other Review of Systems General: Reports: 10 or more systems reviewed and unremarkable except in HPI and below PFSH ED PFSH: Medical History Cervical disc disorder with myelopathy of mid-cervical region GERD (gastroesophageal reflux disease) Surgical History H/O arthroscopy of knee (~2009) H/O section 12/14/2015--opted to Repeat; Gagandeep 11/25/2013--[facility]; [place] H/O esophagogastroduodenoscopy (11/04/19) normal H/O wisdom tooth extraction Status post laparoscopic cholecystectomy (11/17/19) Family History Mother Hypertension Family history of thyroid problem Clotting disorder Grandmother Family history of thyroid problem MATERNAL Family/Other Family history of thyroid problem MATERNAL AUNT Patient denies medical problems Diabetes Mellitus, Heart Disease, Stroke, Hypercholesterolemia, Breast Cancer, Ovarian Cancer, Uterine Cancer, Colon Cancer Denies family history of Anesthesia complication Bleeding disorder Social History Smoking and tobacco status: current every day smoker Quit status (tobacco): has quit using tobacco Former quit date comment: JULY 0303/2019 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 Alcohol intake: never Household members: spouse and children Marital status: 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 History of recent travel: No Physical Exam Const: COMMON NORMALS: alert GENERAL APPEARANCE: cooperative, well developed and ill appearing (Somewhat) HENMT: COMMON NORMALS: normocephalic and atraumatic HEAD & SCALP: normocephalic and atraumatic Eye: COMMON NORMALS: conjunctivae normal CONJUNCTIVA: Yes conjunctivae normal SCLERA: sclerae normal Neck/C-Spine: COMMON NORMALS: supple GENERAL: Yes trachea midline Resp: COMMON NORMALS: normal respiratory effort EFFORT & INSPECTION: Yes able to speak in complete sentences Cardio: COMMON NORMALS: regular rhythm RATE: tachycardic RHYTHM: regular rhythm GI: COMMON NORMALS: Soft to palpation PALPATION: Yes Soft to palpation and No Tenderness to palpation present (GI) Extremity: GENERAL: Yes normal exam except as noted and No edema Neuro: COMMON NORMALS: moves all extremities SENSORIUM/ORIENTATION: Yes alert and No Orientation impaired Psych: COMMON NORMALS: mental status grossly normal and Normal thought process present THOUGHT PROCESS: Normal thought process present Course Vital Signs: Vital signs: Vital Signs Temperature 98.1 F 03/08/22 13:48 Pulse Rate 89 03/08/22 20:14 Respiratory Rate 16 03/08/22 20:14 Blood Pressure 132/89 03/08/22 20:14 Pulse Oximetry 98 03/08/22 20:14 Oxygen Delivery Me thod 03/08/22 13:48 MDM - Chest Pain Medical Decision Making 32-year-old female presenting with chest discomfort and generalized illness. Exam as above. Patient is tachycardic and somewhat ill in appearance. She is nontoxic. EKG shows sinus tachycardia with nonspecific ST segment abnormalities. Labs with hemoconcentration and minimal leukocytosis. Metabolic panel with hypokalemia, mild transaminitis. Negative range 2-hour delta troponin. D-dimer is elevated. Hematuria with concern for urinary tract infection present. Chest x-ray with no lobar consolidation or pneumothorax. D-dimer was obtained as the patient cannot be ruled out by PERC criteria and therefore CT imaging is appropriate given patient's overall clinical appearance, labs, and vital signs. CT imaging with mild gastric wall thickening, hepatic steatosis, and T9 vertebral body lesion which was discussed with patient along with incidental findings. Patient feels somewhat improved and is able to tolerate p.o. intake after IV fluids, magnesium and potassium management, and antibiotic administered for UTI. Most likely cause of patient symptoms is multifactorial. Given improvement she does not require admission at this time. The results of ED evaluation were discussed with the patient including prescriptions and/or symptomatic cares (if applicable) including appropriate and responsible use, followup plan, and return precautions. The patient verbalized understanding and felt safe for discharge. Medical Records I reviewed the patient's medical records. Lab Data I reviewed the patient's lab results. 03/08/22 13:50 03/08/22 13:50 Radiology Impressions Chest X-Ray 03/08/22 13:55 Impression: Negative chest. Chest/Abdomen/Pelvis CT 03/08/22 14:37 IMPRESSION: 1. Negative for pulmonary embolus. 2. T9 vertebral body 8 mm sclerotic indeterminate bony lesion, whole body nuclear medicine bone scan could further evaluate this as clinically indicated. IMPRESSION: 1. Mild gastric wall thickening, likely due to nondistention, gastritis may also be a consideration depending on the clinical scenario. 2. Hepatic steatosis suspected. 3. Cholecystectomy. Laboratory Results WBC 12.6 10^3/uL (4.0-10.0) H 03/08/22 13:50 RBC 5.44 10^6/uL (4.1-5.3) H 03/08/22 13:50 Hgb 15.9 g/dL (11.5-15.3) H 03/08/22 13:50 Hct 46.3 % (37.0-47.0) 03/08/22 13:50 MCV 85.1 fl (81-99) 03/08/22 13:50 MCH 29.2 pg (28.0-34.0) 03/08/22 13:50 MCHC 34.3 g/dL (30.0-36.0) 03/08/22 13:50 RDW 11.9 % (12.1-15.1) L 03/08/22 13:50 Plt Count 348 10^3/cmm (130-400) 03/08/22 13:50 MPV 10.7 fL (7.4-10.4) H 03/08/22 13:50 Neut % (Auto) 74.6 % 03/08/22 13:50 Lymph % (Auto) 17.4 % 03/08/22 13:50 [place] % (Auto) 6.1 % 03/08/22 13:50 Eos % (Auto) 1.3 % 03/08/22 13:50 Baso % (Auto) 0.3 % 03/08/22 13:50 Neut # (Auto) 9.38 10^3/uL (1.8-7.7) H 03/08/22 13:50 Lymph # (Auto) 2.2 10^3/uL (0.8-4.8) 03/08/22 13:50 [place] # (Auto) 0.8 10^3/uL (0.2-0.9) 03/08/22 13:50 Eos # (Auto) 0.2 10^3/uL (0.0-0.8) 03/08/22 13:50 Baso # (Auto) 0.0 10^3/uL (0.0-0.1) 03/08/22 13:50 Nucleated RBC % (auto) 0 % 03/08/22 13:50 Nucleated RBCs # 0.0 /100WBC 03/08/22 13:50 D-Dimer 0.60 ug/mIFEU (0-0.59) H 03/08/22 13:50 Sodium 136 mmol/L (136-145) 03/08/22 13:50 Potassium 3.0 mmol/L (3.5-5.1) L 03/08/22 13:50 Chloride 94 mmol/L (98-107) L 03/08/22 13:50 Carbon Dioxide 27 mmol/L (22-29) 03/08/22 13:50 Anion Gap 18.0 (5-19) 03/08/22 13:50 BUN 16 mg/dL (6-20) 03/08/22 13:50 Creatinine 0.7 mg/dL (0.5-0.9) 03/08/22 13:50 GFR Calculation 96.4 mL/min (90-130) 03/08/22 13:50 Glucose 83 mg/dL (65-115) 03/08/22 13:50 Calculated Osmolality 282 mOsm/kg (285-295) L 03/08/22 13:50 Calcium 9.3 mg/dL (8.5-10.5) 03/08/22 13:50 Total Bilirubin 0.5 mg/dL (0.15-1.2) 03/08/22 13:50 AST 27 U/L (0-32) 03/08/22 13:50 ALT 57 U/L (0-33) H 03/08/22 13:50 Alkaline Phosphatase 141 U/L (35-105) H 03/08/22 13:50 Troponin T Baseline 10 ng/L (0-10) 03/08/22 13:50 Troponin T 120 Minute 11.72 ng/L (0-10) H 03/08/22 15:48 Delta Troponin T 1.72 ABS# (0-10) 03/08/22 15:48 NT-Pro-B Natriuret Pep 19 pg/mL (0-125) 03/08/22 13:50 Total Protein 8.0 g/dL (6.6-8.7) 03/08/22 13:50 Albumin 4.6 g/dL (3.5-5.2) 03/08/22 13:50 Globulin 3.4 g/dL (1.3-4.6) 03/08/22 13:50 Lipase 35 U/L (13-60) 03/08/22 13:50 TSH 1.02 uIU/mL (0.27-4.20) 03/08/22 13:50 HCG, Qual Negative (Negative) 03/08/22 14:20 Urine Color Jodi (Yellow) 03/08/22 14:20 Urine Appearance Cloudy (CLEAR) A 03/08/22 14:20 Urine pH 5 (5-7) 03/08/22 14:20 Ur Specific [place] 1.020 (1.005-1.030) 03/08/22 14:20 Urine Protein 2+ (Negative) H 03/08/22 14:20 Urine Glucose (UA) Norm (Normal) 03/08/22 14:20 Urine Ketones 1+ (Negative) H 03/08/22 14:20 Urine Blood 3+ (Negative) H 03/08/22 14:20 Urine Nitrate Negative (Negative) 03/08/22 14:20 Urine Bilirubin 1+ (Negative) H 03/08/22 14:20 Urine Urobilinogen 1 mg/dL (Negative) H 03/08/22 14:20 Ur Leukocyte Esterase 1+ (Negative) H 03/08/22 14:20 Urine RBC Too numerous to cnt /hpf (0-2) H 03/08/22 14:20 Urine WBC 15-25 /hpf (0-5) H 03/08/22 14:20 Ur Squamous Epith Cells 0-4 /hpf (0-5) H 03/08/22 14:20 Amorphous Sediment Not Reportable 03/08/22 14:20 Urine Bacteria None /hpf (NONE) 03/08/22 14:20 Coronavirus 229E (PCR) Not detected (NOT DETECT) 03/08/22 14:25 SARS-CoV-2 (PCR) Not detected (NOT DETECT) 03/08/22 14:25 Discharge Plan Discharge Patient Disposition: Home Clinical Impression: Chest pain, Generalized weakness, Acute dehydration, Hypokalemia, UTI (urinary tract infection), Gastritis, Bone lesion Condition: Stable Prescriptions: New ondansetron 4 mg tablet,disintegrating 4 mg PO Q8H PRN (Reason: nausea and vomiting) Qty: 15 0RF Protonix 40 mg tablet,delayed release (DR/EC) 40 mg PO BID 14 Days Qty: 28 0RF potassium chloride 20 mEq tablet extended release 20 meq PO DAILY Qty: 5 0RF No Action venlafaxine 75 mg tablet 75 mg PO QAM tizanidine 4 mg capsule 4 mg PO TID PRN (Reason: Muscle Spasm) varenicline [Chantix] 1 mg tablet 1 mg PO QAM chlorthalidone 25 mg tablet 25 mg PO QAM Aspir-81 81 mg Tablet,Delayed Release (Dr/Ec) 81 mg PO .ONCE TODAY amlodipine 10 mg tablet 10 mg PO QAM buspirone 7.5 mg tablet 7.5 mg PO BID PRN (Reason: Anxiety) ProAir HFA 90 mcg/actuation Hfa Aerosol Inhaler 2 puff INHALATION QID PRN (Reason: Shortness Of Breath) ondansetron 4 mg tablet,disintegrating 4 mg PO TID PRN (Reason: Nausea And Vomiting) meloxicam 15 mg tablet 15 mg PO QAM levothyroxine 25 mcg tablet 12.5 mcg PO DAILY Rx Instructions: MEDICATION ON HOLD OF 03/03/22 Discharge Orders: Discharge ED (Routine); Ordered 03/08/22 Ordered By: Mike Mobley Referrals: Siria De La Torre FNP [Primary Care Provider] - Discharge Diet: Advance as tolerated and Clear Liquid Discharge Activity: Increase activity as tolerated Patient Instructions: Chest Pain (ED), Gastritis (ED), Urinary Tract Infection in Women (ED), Weakness (ED) Activity Restrictions/Additional Instructions: Thank you for visiting the emergency department. You were seen and evaluated for generalized weakness and chest pain. The exact cause of your symptoms is unclear though does not appear to need hospitalization at this time. You were found to have dehydration, likely urinary tract infection, mild gastritis, hypokalemia. I would expect improvement in the next few days with treatment. Please follow-up with your primary care provider. As discussed you do have the following incidental finding: T9 vertebral body 8 mm sclerotic indeterminate bony lesion, whole body nuclear medicine bone scan could further evaluate this as clinically indicated. This can be discussed with your primary care provider. Return to the emergency department for worsening or uncontrolled symptoms, or anything else that you are concerned about a feel needs emergency department evaluation. Coding Level of Care Code ED Home Care Provider for Chg Fwd Exam Comprehensive
--- NOTE | 2022-03-08 13:55 | XR_ITS ---
WS: [id number] Portable AP upright chest, 03/08/2022 Clinical Data: cp Comparison: Portable chest, 02/28/2022 Findings: No nodules, masses or effusions are seen. The heart is normal. The pulmonary vascularity is not increased. No pneumonia or pneumothorax is seen. XR/XR chest 1V portable [id number] Impression: Negative chest.
--- NOTE | 2022-03-08 13:55 | ECG_ITS ---
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 Measurements Intervals [place] Rate: 120 P: 69 MT: 126 QRS: 32 QRSD: 81 T: 30 QT: 330 QTc: 467 Interpretive Statements SINUS TACHYCARDIA Compared to ECG 02/28/2022 15:37:04 Sinus rhythm no longer present Electronically Signed On 03-09-2022 8:56:11 ORTHOPHOTOGRAPHY TECHNICIAN by Saravanan Malone M.D. [email or web address] specialty hospital [id number]
[2022-03-08 14:19] LABS: Basophils % 0.3 %; Eosinophils # 0.2 10^3/uL (0.0-0.8); Eosinophils % 1.3 %; Hematocrit 46.3 % (37.0-47.0); Hemoglobin 15.9 g/dL (11.5-15.3); Lymphocytes # 2.2 10^3/uL (0.8-4.8); Lymphocytes % 17.4 %; Mean Corpuscular HGB Conc 34.3 g/dL (30.0-36.0); Mean Corpuscular Hemoglobin 29.2 pg (28.0-34.0); Mean Corpuscular Volume 85.1 fl (81-99); Mean Platelet Volume 10.7 fL (7.4-10.4); Monocytes # 0.8 10^3/uL (0.2-0.9); Monocytes % 6.1 %; Neutrophils # 9.38 10^3/uL (1.8-7.7); Neutrophils % 74.6 %; Nucleated Red Blood Cells % 0 %; Platelet Count 348 10^3/cmm (130-400); Red Blood Count 5.44 10^6/uL (4.1-5.3); Red Cell Distribution Width 11.9 % (12.1-15.1); White Blood Count 12.6 10^3/uL (4.0-10.0)
[2022-03-08] MEDS: sodium chloride 0.9% 1,000 ML 999 ML IV ×2 (14:23→17:06)
--- NOTE | 2022-03-08 14:37 | CTR_ITS ---
PROCEDURE INFORMATION: Exam: CTA Chest With Contrast Exam date and time: 03/08/2022 4:09 PM Age: 32 years old Clinical indication: Other: Hematuria; Angina and shortness of breath; Prior surgery; Surgery date: 6+ months; Surgery type: , gb; Additional info: Cp, tachycardia, elevated ddimer, hematuria TECHNIQUE: Imaging protocol: Computed tomographic angiography of the chest with contrast. 3D rendering (Not supervised by radiologist): MIP and/or 3D reconstructed images were created by the technologist. Radiation optimization: All CT scans at this facility use at least one of these dose optimization techniques: automated exposure control; mA and/or kV adjustment per patient size (includes targeted exams where dose is matched to clinical indication); or iterative reconstruction. Contrast material: OMNIPAQUE 350; Contrast volume: 100 ml; Contrast route: INTRAVENOUS (IV); COMPARISON: CR XR chest 1V portable [id number] 03/08/2022 1:58 PM RADIATION DOSE METRICS: Total DLP (mGy-cm): 1079.52 FINDINGS: Pulmonary arteries: Normal. No pulmonary emboli. Aorta: Unremarkable. No aortic aneurysm. No aortic dissection. Lungs: Unremarkable. No consolidation. No masses. Pleural spaces: Unremarkable. No pneumothorax. No pleural effusion. Heart: Unremarkable. No cardiomegaly. No pericardial effusion. Coronary arteries: Negative for coronary artery atherosclerotic calcifications. Lymph nodes: Unremarkable. No enlarged lymph nodes. Bones/joints: T9 vertebral body 8 mm sclerotic indeterminate bony lesion, whole body nuclear medicine bone scan could further evaluate this as clinically indicated. Soft tissues: Unremarkable. PROCEDURE INFORMATION: Exam: CT Abdomen And Pelvis With Contrast Exam date and time: 03/08/2022 4:09 PM Age: 32 years old Clinical indication: Other: Hematuria; Angina and shortness of breath; Prior surgery; Surgery date: 6+ months; Surgery type: , gb; Additional info: Cp, tachycardia, elevated ddimer, hematuria TECHNIQUE: Imaging protocol: Computed tomography of the abdomen and pelvis with contrast. Radiation optimization: All CT scans at this facility use at least one of these dose optimization techniques: automated exposure control; mA and/or kV adjustment per patient size (includes targeted exams where dose is matched to clinical indication); or iterative reconstruction. Contrast material: OMNIPAQUE 350; Contrast volume: 100 ml; Contrast route: INTRAVENOUS (IV); COMPARISON: CR XR KUB portable [id number] 11/17/2019 4:08 PM RADIATION DOSE METRICS: Total DLP (mGy-cm): 1079.52 FINDINGS: Liver: Hepatic steatosis suspected. Gallbladder and bile ducts: Cholecystectomy. Pancreas: Normal. No ductal dilation. Spleen: Normal. No splenomegaly. Adrenal glands: Normal. No mass. 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 Stomach and bowel: Mild gastric wall thickening, likely due to nondistention, gastritis may also be a consideration depending on the clinical scenario. Appendix: No evidence of appendicitis. Intraperitoneal space: Unremarkable. No free air. No significant fluid collection. Vasculature: Unremarkable. No abdominal aortic aneurysm. Lymph nodes: Unremarkable. No enlarged lymph nodes. Urinary bladder: Unremarkable as visualized. Reproductive: Unremarkable as visualized. Bones/joints: Unremarkable. No acute fracture. Soft tissues: Unremarkable. CT/CT angio chest w abd pel w con IMPRESSION: 1. Negative for pulmonary embolus. 2. T9 vertebral body 8 mm sclerotic indeterminate bony lesion, whole body nuclear medicine bone scan could further evaluate this as clinically indicated. IMPRESSION: 1. Mild gastric wall thickening, likely due to nondistention, gastritis may also be a consideration depending on the clinical scenario. 2. Hepatic steatosis suspected. 3. Cholecystectomy.
--- NOTE | 2022-03-08 14:39 | PC.PHAR ---
PT STATES SHE TAKES CARE OF HER OWN MEDICATIONS-PT STATES HER LEVOTHYROXINE 12.5MCG DAILY WAS PUT ON HOLD 03/03/22-PT STATES SHE JUST TAKES HER CHANTIX 1MG DAILY EXT MED HISTORY SHOWS LAST FILLED 01/11/22 1MG BID-EXT MED HISTORY SHOWS SPRINTEC DAILY FILLED 02/21/22 28D/S PT STATES SHE NEVER STARTED TAKING SPRINTEC-PT STATES SHE HAD THE NEXPLANON REMOVED-
[2022-03-08 14:41] LABS: Troponin(5th) Baseline 10 ng/L (0-10)
[2022-03-08 14:51] LABS: Alanine Aminotransferase 57 U/L (0-33); Albumin Level 4.6 g/dL (3.5-5.2); Alkaline Phosphatase 141 U/L (35-105); Aspartate Amino Transferase 27 U/L (0-32); Blood Urea Nitrogen 16 mg/dL (6-20); Calcium 9.3 mg/dL (8.5-10.5); Carbon Dioxide 27 mmol/L (22-29); Chloride 94 mmol/L (98-107); Globulin 3.4 g/dL (1.3-4.6); Glomerular Filtration Rate 96.4 mL/min (90-130); Glucose 83 mg/dL (65-115); Lipase 35 U/L (13-60); NT Pro B Type Natriuretic Pept 19 pg/mL (0-125); Osmolality Calculated 282 mOsm/kg (285-295); Sodium 136 mmol/L (136-145); Thyroid Stimulating Hormone 1.02 uIU/mL (0.27-4.20); Total Bilirubin 0.5 mg/dL (0.15-1.2)
[2022-03-08 14:58] LABS: Protein Urine 2+ (Negative); Urine Appearance Cloudy (CLEAR); Urine Color Amber (Yellow); pH Urine 5 (5-7)
[2022-03-08 14:59] LABS: Add Urine Microscopic? YES; Bilirubin Urine 1+ (Negative); Blood Urine 3+ (Negative); Glucose Urine UA Norm (Normal); Ketones Urine 1+ (Negative); Leukocyte Esterase Urine 1+ (Negative); Nitrate Urine Negative (Negative); Urobilinogen Urine 1 mg/dL (Negative)
[2022-03-08 15:00] LABS: RBC Urine TOO NUMEROUS TO CNT /hpf (0-2); WBC Urine 15-25 /hpf (0-5)
[2022-03-08 15:01] LABS: Add Urine Culture? Yes; Squamous Epithelial Cell Urine 0-4 /hpf (0-5)
[2022-03-08 15:14] LABS: HCG Qualitative Urine. Negative (Negative)
[2022-03-08] MEDS: potassium chloride ER 20 mEq Tablet 60 MEQ PO (15:40)
[2022-03-08] MEDS: magnesium sulfate premix 2 GM/50 ML PIGGYBACK IV (15:40)
[2022-03-08] MEDS: iohexol 350 mg/mL 500 mL Btl (per mL) IV (16:22)
--- NOTE | 2022-03-08 16:22 | ECG_ITS ---
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 Measurements Intervals [place] Rate: 96 P: 57 RI: 146 QRS: -11 QRSD: 101 T: 29 QT: 384 QTc: 487 Interpretive Statements SINUS RHYTHM POSSIBLE RIGHT VENTRICULAR CONDUCTION DELAY [RSR (QR) IN V1/V2] Compared to ECG 03/08/2022 13:50:04 Sinus tachycardia no longer present Electronically Signed On 03-09-2022 8:57:11 EDITOR NEWSPAPER by Saravanan Malone M.D. [id number]
[2022-03-08 16:24] LABS: Troponin 5 2HR 11.72 ng/L (0-10)
[2022-03-08 16:25] LABS: Troponin 5 2HR Delta 1.72 ABS# (0-10)
[2022-03-08] MEDS: cefTRIAXone 1,000 MG in sodium chloride 0.9% (plus) 50 ML 100 MG IV (18:08)
[2022-03-08 19:00] LABS: Adenovirus Not Detected (NOT DETECT); Chlamydia Pneumoniae Not Detected (NOT DETECT); Coronavirus 229E,HKU1,NL63,OC4 Not Detected (NOT DETECT); Human Metapneumovirus Not Detected (NOT DETECT); Human Rhinovirus/Enterovirus Not Detected (NOT DETECT); Influenza A Not Detected (NOT DETECT); Influenza A H1 Not Detected (NOT DETECT); Influenza A H1-2009 Not Detected (NOT DETECT); Influenza A H3 Not Detected (NOT DETECT); Influenza B Not Detected (NOT DETECT); Mycoplasma Pneumoniae Not Detected (NOT DETECT); Parainfluenza Virus Type 1 Not Detected (NOT DETECT); Parainfluenza Virus Type 2 Not Detected (NOT DETECT); Parainfluenza Virus Type 3 Not Detected (NOT DETECT); Parainfluenza Virus Type 4 Not Detected (NOT DETECT); Respiratory Syncytial Virus A Not Detected (NOT DETECT); Respiratory Syncytial Virus B Not Detected (NOT DETECT); SARS-COV-2 Not Detected (NOT DETECT)
== END 2022-03-08 20:14 | disposition home or self-care (01) ==
PROVIDERS: Emergency Provider Emergency Medicine; PCP Nurse Practitioner Family
DX: R07.9 Chest pain, unspecified (principal); R53.1 Weakness; E86.0 Dehydration; E87.6 Hypokalemia; N39.0 Urinary tract infection, site not specified; K29.70 Gastritis, unspecified, without bleeding; M89.9 Disorder of bone, unspecified; Z79.82 Long term (current) use of aspirin; Z20.822 Contact with and (suspected) exposure to COVID-19; F17.210 Nicotine dependence, cigarettes, uncomplicated
CPT/HCPCS: 36415; 71045; 71275; 74177; 80053; 81001; 81025; 83690; 83880; 84443; 84484; 85025; 85378; 87040; 87086; 87635; 93005; 96365; 96367; 99285; J0696; J3475; J7030; Q9967

== ENCOUNTER 2022-03-22 09:04 | Outpatient (CLI) | payer MEDICAID, SELFPAY ==
--- NOTE | 2022-03-22 09:12 | NM_ITS ---
WS: [id number] NUCLEAR MEDICINE WHOLE BODY BONE SCAN HISTORY: LESION OF THORACIC SPINE COMPARISON: Prior CT 03/08/2022 TECHNIQUE: The patient was injected with 23.1 mCi of Technetium 99m HDP and serial whole-body scintig colette have been performed with anterior and posterior images. Normal soft tissue and bone uptake throughout the entire skeleton. Previously described T9 sclerotic lesion by CT is negative. There is no increased uptake and no photopenic defect. This is probably a b enign bone island. Normal soft tissue and renal uptake. NM/NM bone scan whole body* [id number] IMPRESSION: Normal bone scan. No increased uptake involving the T9 vertebral body. Scleroti c lesion is most likely benign and may be a benign bone island.
== END 2022-03-22 09:05 | disposition home or self-care (01) ==
LOC: RAD 09:05
PROVIDERS: PCP Nurse Practitioner Family; Visit Provider Family Medicine
DX: M99.9 Biomechanical lesion, unspecified (principal)
CPT/HCPCS: 78306; A9561

== ENCOUNTER 2022-03-27 13:23 | Outpatient (CLI) | payer MEDICAID, SELFPAY ==
--- NOTE | 2022-03-27 13:30 | IR_ITS ---
WS: [email or web address] RIGHT KNEE ARTHROGRAM (FLUOROSCOPY) RIGHT arthrogram was performed in fluoroscopy prior to MRI evaluation. HISTORY: Positive Mc Murrays sign COMPARISON: None. Procedure, risks and complications were explained to the patient. Complications include but not limit ed to bleeding, infection and contrast reaction. Current medications are reviewed. Skin is cleansed with ChloraPrep. Skin is anesthetized with 1% buffered lidocaine. 22-gauge needle is inserted into the patellofemoral joint RIGHT knee. Approximately 30 cc of gadolinium mixture injecte d without complication. Patient will proceed to MRI evaluation immediately. No complications were encountered. Patient is instructed to watch for post procedure infection or ble eding. Patient is also instructed to contact the radiology department with any concerns. There is a large meniscal tear involving the lateral meniscus which extends horizontally through the lateral compartment. There is a small amount contrast also extending along the peripheral aspect of t he lateral meniscus. IR/[place] [id number] IMPRESSION: Uncomplicated RIGHT knee joint injection prior to MRI arthrogram. Horizontal tear lateral meniscus. Please see MRI report to follow.
--- NOTE | 2022-03-27 13:38 | MR_ITS ---
WS: [id number] MRI RIGHT KNEE with and without contrast. HISTORY: POSITIVE JOEL SIGN Technique: Multiplanar imaging is performed of the knee pre and post arthrogram injection of contrast . COMPARISON: None available. Precontrast: Anterior cruciate ligament: Intact. Posterior cruciate ligament: Intact. Medial collateral ligament: Intact. Posterior lateral corner structures: Intact. Medial menisci: Intact. Normal signal, size and shape. Lateral meniscus: Horizontal fracture in the anterior horn of the lateral meniscus. Posterior horn is normal. Extensor mechanism: Distal quadriceps tendon and patellar tendons are intact. Fluid and soft tissue: No joint effusion. No Berman's cyst. Osseous and articular structures: Patellofemoral compartment: Normal. Medial compartment: Negative. Lateral compartment: Negative. Postcontrast: Contrast extends along the horizontal tear of the anterior horn lateral meniscus from t he periphery to near the intercondylar notch. Additional focal 5 mm chondromalacia in the lateral patellar facet cartilage. MR/MR knee RT wo/w con [id number] IMPRESSION: 1. Horizontal tear anterior horn lateral meniscus. 2. 5 mm focal chondromalacia lateral patellar facet.
[2022-03-27] MEDS: gadobenate dimeglumine 20 mL vial XX (14:43)
[2022-03-27] MEDS: iohexol 240 mg/mL 50 mL Btl INTRA-ARTI (14:44)
== END 2022-03-27 13:24 | disposition home or self-care (01) ==
LOC: RAD 13:27
PROVIDERS: PCP Nurse Practitioner Family; Visit Provider Specialist
DX: S83.281A Other tear of lateral meniscus, current injury, right knee, initial encounter (principal); X58.XXXA Exposure to other specified factors, initial encounter
CPT/HCPCS: 27369; 73580; 73723; 77002; A9577; Q9966

== ENCOUNTER → 2022-04-07 11:15 | Outpatient (BNVA) | payer MEDICAID, SELFPAY | PROVIDERS: PCP Nurse Practitioner Family; Visit Provider Nurse Practitioner Women's Health | DX: Z11.3 Encounter for screening for infections with a predominantly sexual mode of transmission (principal); Z01.419 Encounter for gynecological examination (general) (routine) without abnormal findings; R53.83 Other fatigue | CPT/HCPCS: 86592; 86803; 87340; 87491; 87591; 87624; 87661; 87806 ==

== ENCOUNTER 2022-04-12 15:27 | Outpatient (CLI) | payer MEDICAID, SELFPAY ==
[2022-04-12 19:40] LABS: Free T4 Free Thyroxine 1.27 ng/dL (0.82-1.77); Thyroid Stimulating Hormone 1.51 uIU/mL (0.27-4.20)
== END 2022-04-12 15:28 | disposition home or self-care (01) ==
LOC: LAB 15:30
PROVIDERS: PCP Nurse Practitioner Family; Visit Provider Internal Medicine
DX: E06.3 Autoimmune thyroiditis (principal)
CPT/HCPCS: 36415; 84439; 84443

== ENCOUNTER 2022-04-17 15:19 | Outpatient (CLI) | payer MEDICAID, SELFPAY ==
[2022-04-17 16:40] LABS: Free T4 Free Thyroxine 1.14 ng/dL (0.82-1.77); Thyroid Stimulating Hormone 0.98 uIU/mL (0.27-4.20)
[2022-04-18 09:34] LABS: T3 Total 145 ng/dL (76-181)
[2022-04-21 16:25] LABS: TSH Receptor Binding Antibody 1.44 IU/L (< OR = 2.00)
== END 2022-04-17 15:20 | disposition home or self-care (01) ==
LOC: LAB 15:21
PROVIDERS: PCP Nurse Practitioner Family; Visit Provider Internal Medicine
DX: E01.0 Iodine-deficiency related diffuse (endemic) goiter (principal); E06.3 Autoimmune thyroiditis; R53.83 Other fatigue
CPT/HCPCS: 36415; 83516; 84439; 84443; 84480

== ENCOUNTER 2022-04-21 09:56 | Day surgery (SDC) | payer MEDICAID, SELFPAY ==
[2022-04-20 11:23] VITALS: BMI 33.2
[2022-04-21] VITALS (13 sets, daily range): BP systolic 121–147; BP diastolic 79–100; PULSE 72–111; RESP 12–18; TEMP 36.2–36.6; O2SAT 95–100
--- NOTE | 2022-04-21 10:11 | P.HPUD_ITS ---
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 [id number],S83.289A(Right) - Feli Renee MD s Debridement Upper Extremity(Right) - Feli Renee MD Related Problem List Diagnoses (1) Tear of lateral meniscus of right knee: Qualifiers: Tear current or old: current Encounter type: initial encounter Meniscus tear of knee type: other type Qualified Code(s): S83.281A - Other tear of lateral meniscus, current injury, right knee, initial encounter
[2022-04-21] MEDS: CELEcoxib 200 mg Capsule 400 MG PO (10:30)
[2022-04-21] MEDS: acetaminophen 1,000 MG/100 ML PIGGYBACK 400 MG IV (10:31)
[2022-04-21] MEDS: sodium chloride 0.9% 1,000 ML 30 ML IV (10:31)
[2022-04-21 10:37] LABS: OR HCG Qualitative Urine Negative (Negative)
--- NOTE | 2022-04-21 10:56 | ANES.PREANE2 ---
Pre-Anesthetic Assessment Height/Weight: Height 1.52 m Weight 77.111 kg Temp Pulse Resp BP Pulse Ox O2 Del Method 97.8 F 72 16 129/93 100 04/21/22 10:11 04/21/22 10:11 04/21/22 10:11 04/21/22 10:11 04/21/22 10:11 04/21/22 10:11 Preop Diagnosis: Anterior lateral meniscal tear right knee Operation Date: 04/21/22 12:00 Proposed Procedures p RIGHT KNEE ARTHROSCOPY WITH PARTIAL LATERAL MENISECTOMY AND DEBRIDEMENT. [id number],S83.289A(Right) - Feli Renee MD s Debridement Upper Extremity(Right) - Feli Renee MD Familial anesthetic complications: none Was Beta Karen taken within 24 hours: Yes Was Clonidine taken within 24 hours: N/A Last intake: Intake Last Liquid Date 04/20/22 Last Liquid Time 23:00 Last Solid Date 04/20/22 Last Solid Time 23:00 Social No alcohol and No tobacco (h/o smoking) Exam alert, oriented x 3 and regular rate & rhythm Airway Submandibular: within normal limits Cervical ROM: within normal limits Mallampati: Class II Dentition: chipped Comments: Comments: Poor dentition, multiple caries Pulmonary Asthma CV/HEM Arrythmia and Hypertension GI Gastroesophageal Reflux Disease Neuropsych Anxiety, Depression and Headache Anesthetic Plan ASA status: 2 Anesthesia: General Medications/Allergies Home Medications Medication Instructions Recorded Confirmed Last Taken Type tizanidine 4 mg capsule 4 mg PO TID PRN Muscle Spasm 07/07/21 04/21/22 Unknown History venlafaxine 75 mg tablet 75 mg PO QAM 01/31/22 04/21/22 04/20/22 History varenicline 1 mg tablet (Chantix) 1 mg PO QAM 02/18/22 04/21/22 04/20/22 History albuterol sulfate 90 mcg/actuation 2 puff inhalation QID PRN 03/08/22 04/21/22 Unknown History aerosol inhaler (ProAir HFA) Shortness Of Breath amlodipine 10 mg tablet 10 mg PO QAM 03/08/22 04/21/22 04/20/22 History buspirone 7.5 mg tablet 7.5 mg PO BID PRN Anxiety 03/08/22 04/21/22 Unknown History ondansetron 4 mg disintegrating 4 mg PO TID PRN Nausea And Vomiting 03/08/22 04/21/22 Unknown History tablet metoprolol tartrate 25 mg tablet 25 mg PO BID #180 tabs 04/20/22 04/21/22 Unknown Rx Allergies Allergy/AdvReac Type Severity Reaction Status Date / Time sulfamethoxazole Allergy HIVES Verified 04/20/22 12:41 [From Bactrim] trimethoprim [From Bactrim] Allergy HIVES Verified 04/20/22 12:41 ciprofloxacin [From Cipro] AdvReac VOMITING Verified 04/20/22 12:41 Current Medications Generic Name Dose Route Start Last Admin Trade Name Freq PRN Reason Stop Dose Admin Sodium Chloride 1,000 mls @ 30 mls/hr 04/21/22 10:15 04/21/22 10:31 Sodium Chloride 0.9% IV 04/22/22 10:14 30 mls/hr .Q24H CHARITY Administration PFSH Anesthesia Medical History Cervical disc disorder with myelopathy of mid-cervical region GERD (gastroesophageal reflux disease) No pertinent past medical history neghx:dm,dvt/pe PCP: Terri VILLARREAL Surgical History H/O arthroscopy of knee (~2009) H/O section 12/14/2015--opted to Repeat; Gagandeep 11/25/2013--NRFHR; [place] H/O esophagogastroduodenoscopy (11/04/19) normal H/O wisdom tooth extraction Status post laparoscopic cholecystectomy (11/17/19) Family History Mother Hypertension Family history of thyroid problem Clotting disorder Grandmother Family history of thyroid problem MATERNAL Family/Other Family history of thyroid problem MATERNAL AUNT Patient denies medical problems Diabetes Mellitus, Heart Disease, Stroke, Hypercholesterolemia, Breast Cancer, Ovarian Cancer, Uterine Cancer, Colon Cancer Denies family history of Anesthesia complication Bleeding disorder Data Anesthesia Cardiac Studies: Holter Monitor 03/20/22
[2022-04-21] MEDS: ceFAZolin 2,000 MG in sodium chloride 0.9% (plus) 50 ML 100 MG IV (10:57)
[2022-04-21] MEDS: morphine 4 mg/mL SDV 1 mL 8 MG XX (11:48)
[2022-04-21] MEDS: meperidine 50 mg/mL INJ (12:50)
--- NOTE | 2022-04-21 13:23 | P.OP_ITS ---
Operative Report Date of procedure: April 21, 2022 Pre-op diagnosis: Right knee lateral meniscal tear Post-op diagnosis: Right knee lateral and medial meniscal tears Post-op findings: Significant tear involving the anterior half of the lateral meniscus with horizontal and vertical tearing. This was a complex tear. Additional anterior horn medial meniscal tear. Procedure done: Right arthroscopic knee surgery with partial medial and lateral meniscectomies, debridement of medial plica Pathology: none sent Surgeon: Feli Renee Rip Machine Operator: None Anesthesia: General (LMA, ASA 2) Estimated blood loss (mL): 25 Tourniquet time (min): 72 (At 250 mmHg) IV fluids (mL): 1,000 Urine output (mL): 0 (No Garay) Complications: None Condition: stable Disposition: PACU (Then return to same-day surgery for discharge to home) Brief History: This is an established 32 year old female patient here today for right arthroscopic knee surgery. Initially, conservative treatment of the right knee pain included meloxicam, but her primary care was concerned regarding use of this medication with her hypertension. Once coming off the meloxicam, she had significant increase in her pain and symptoms. She reports right medial and lateral knee pain and stiffness. She reports popping and grinding noises. MRI arthrogram was obtained at [facility], and this demonstrated a horizontal tear of the anterior horn of the lateral meniscus which extended from the periphery to the intercondylar notch. Procedure: Patient was brought to the operating theater and after undergoing adequate general anesthesia per LMA, the patient's right lower extremity was prepped and draped in usual fashion utilizing DuraPrep. A tourniquet was placed high on the leg prior to prepping and draping. The tourniquet was elevated prior to commencement of the surgical procedure to 250 mmHg. Total tourniquet time was 72 minutes. Elevation followed prepping and exsanguination. Prior to commencement of the surgical procedure, a surgical pause was performed. At the time of the surgical pause, we identified the site and side of surgery. We also confirm the patient's identity and appropriate and timely administration of preoperative antibiotics, Ancef 2 g. Preoperative surgical markings were also visualized at this time. Standard arthroscopic portals were utilized including superolateral, inferomedial, and inferolateral portals. The examination commenced in the suprapatellar pouch area where the patient was noted to have minimal chondromalacia on the undersurface of the patella. This did not require debridement. The arthroscope was then passed along the medial gutter, and there was noted to be a plica. We then progressed into the medial compartment where there was noted to be synovitis and a slight anterior horn tear of the medial meniscus. The arthroscope was then passed across the notch area where anterior cruciate ligament was visualized and found to be intact. The scope was passed into the lateral compartment with the knee in a [id number] position. Lateral meniscus was noted to have significant tearing. There was a large horizontal tear involving the entire anterior half of the meniscus. This horizontal tear extended to the periphery of the meniscus and had obvious wear. There was displacement between the 2 sections of the horizontal tear. Further palpation demonstrated that this tear extended to the attachment anteriorly. Debridement of the meniscus was accomplished with basket forceps, the intra- articular shaver, and the intra-articular heat wand. With palpation and gentle removal of the meniscus, it was determined that the anterior half of the lateral meniscus required resection due to significant tear with significant damage. Once this area had been addressed and stabilized, it was palpated and found to be intact and not displaceable into the knee joint. Scope was then returned to the medial compartment where attention was directed to the anterior horn. Debridement was accomplished with a combination of the intra-articular shaver and the intra-articular heat wand.. The meniscus was palpated and found to be not displaceable into the knee joint. The arthroscope was passed back into the medial gutter where the plica was resected. The arthroscope was then returned to the patellofemoral joint where the patella was again evaluated and was felt to not require debridement. The scope was passed back through the knee compartments to evaluate for other abnormalities. Finding none, attention was directed to closure. The knee was copiously irrigated and suctioned dry. Following this, each portal was closed with a simple suture followed by Dermabond and OpSite. Additionally, the knee was injected with 20 mL of half percent ropivacaine and 8 mg of morphine. Additional 10 mL of ropivacaine was placed about the portals. Sterile dressing was placed consisting of the OpSite, soft roll, and an Luis Felipe wrap. Patient was returned to Recovery Room in satisfactory condition where she will be discharged home to follow-up with me in the office as scheduled. There were no complications and no specimens. Related Problem List Diagnoses (1) Tear of lateral meniscus of right knee: (2) Tear of medial meniscus of right knee, current:
[2022-04-21] MEDS: ondansetron 2 mg/ML SDV 2 mL 4 MG IVP (13:40)
--- NOTE | 2022-04-21 14:15 | ANE.PACU2 ---
Inpatient post-anesthesia follow up: Airway intact: Yes Vital signs: Temperature 97.2 F Pulse Rate 109 Respiratory Rate 16 Blood Pressure 123/82 Pulse Oximetry 97 Oxygen Delivery Me thod Room Air Oxygen Flow Rate 6 Fraction of Inspir ed Oxygen Hydration adequate: Yes Nausea and vomiting: No Pain level: 3 Mental status: Baseline
== END 2022-04-21 13:48 | disposition home or self-care (01) ==
PROVIDERS: Anesthesiology; PCP Nurse Practitioner Family; Visit Provider Specialist
PROC: (CPT 29870; principal; 2022-04-21 11:40)
DX: S83.281A Other tear of lateral meniscus, current injury, right knee, initial encounter (principal); S83.241A Other tear of medial meniscus, current injury, right knee, initial encounter; X58.XXXA Exposure to other specified factors, initial encounter; J45.909 Unspecified asthma, uncomplicated; I10 Essential (primary) hypertension; K21.9 Gastro-esophageal reflux disease without esophagitis; F41.9 Anxiety disorder, unspecified; F32.A Depression, unspecified; Z79.82 Long term (current) use of aspirin
CPT/HCPCS: 29880; 81025; 84703; J0131; J0690; J1100; J1170; J2175; J2250; J2270; J2370; J2405; J2704; J2795; J3010; J7030

== ENCOUNTER 2022-05-02 18:31 | Emergency (ER) | payer MEDICAID, SELFPAY ==
[2022-05-02 18:33] VITALS: BP 121/79; PULSE 81; RESP 20; TEMP 36.4; O2SAT 99; BMI 32.2
--- NOTE | 2022-05-02 18:42 | ECG_ITS ---
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 Measurements Intervals [place] Rate: 79 P: 23 LA: 125 QRS: 15 QRSD: 81 T: 31 QT: 345 QTc: 396 Interpretive Statements SINUS RHYTHM POSSIBLE RIGHT VENTRICULAR CONDUCTION DELAY [RSR (QR) IN V1/V2] Compared to ECG 03/08/2022 16:22:14 No significant changes Electronically Signed On 05-03-2022 14:19:43 COMPLAINT EVALUATION SUPERVISOR by Roe Choi M.D. [id number]
--- NOTE | 2022-05-02 19:09 | XRR_ITS ---
PROCEDURE INFORMATION: Exam: XR Chest Exam date and time: 05/02/2022 8:10 PM Age: 32 years old Clinical indication: Pain; Chest pressure; Additional info: Cp TECHNIQUE: Imaging protocol: Radiologic exam of the chest. Views: 1 view. COMPARISON: CR XR chest 1V portable [id number] 03/08/2022 1:58 PM FINDINGS: Lungs: Unremarkable. No consolidation. Pleural spaces: Unremarkable. No pleural effusion. No pneumothorax. Heart/Mediastinum: Unremarkable. No cardiomegaly. Bones/joints: Unremarkable. XR/XR chest 1V portable [id number] IMPRESSION: No acute findings.
[2022-05-02 19:45] LABS: Basophils # 0.1 10^3/uL (0.0-0.1); Basophils % 0.4 %; Eosinophils # 0.3 10^3/uL (0.0-0.8); Eosinophils % 2.6 %; Hematocrit 40.5 % (37.0-47.0); Lymphocytes # 2.9 10^3/uL (0.8-4.8); Mean Corpuscular HGB Conc 32.1 g/dL (30.0-36.0); Mean Corpuscular Hemoglobin 28.6 pg (28.0-34.0); Mean Platelet Volume 10.2 fL (7.4-10.4); Monocytes # 0.7 10^3/uL (0.2-0.9); Monocytes % 5.3 %; Neutrophils # 9.09 10^3/uL (1.8-7.7); Neutrophils % 69.3 %; Nucleated Red Blood Cells % 0 %; Platelet Count 304 10^3/cmm (130-400); Red Blood Count 4.55 10^6/uL (4.1-5.3); Red Cell Distribution Width 13.2 % (12.1-15.1); White Blood Count 13.1 10^3/uL (4.0-10.0)
[2022-05-02 20:03] LABS: Troponin(5th) Baseline 6 ng/L (0-10)
[2022-05-02 20:08] LABS: Alanine Aminotransferase 43 U/L (0-33); Albumin Level 4.4 g/dL (3.5-5.2); Alkaline Phosphatase 122 U/L (35-105); Anion Gap 16.2 (5-19); Aspartate Amino Transferase 20 U/L (0-32); Blood Urea Nitrogen 9 mg/dL (6-20); Calcium 9.3 mg/dL (8.5-10.5); Carbon Dioxide 24 mmol/L (22-29); Chloride 100 mmol/L (98-107); Globulin 2.3 g/dL (1.3-4.6); Glomerular Filtration Rate 115.1 mL/min (90-130); Glucose 70 mg/dL (65-115); Osmolality Calculated 279 mOsm/kg (285-295); Potassium 4.2 mmol/L (3.5-5.1); Sodium 136 mmol/L (136-145); Total Bilirubin 0.2 mg/dL (0.15-1.2); Total Protein 6.7 g/dL (6.6-8.7)
--- NOTE | 2022-05-02 21:09 | ECG_ITS ---
[facility] Test Date: 2022-05-02 Pat Name: Lena Grimaldo Department: Room: Gender: Female Crew Person: : 1990 Requested By: Dinesh Woodward Order Number: [id number] Althea MD: Roe Choi M.D. Measurements Intervals [place] Rate: 69 P: 26 DE: 139 QRS: 2 QRSD: 84 T: 30 QT: 366 QTc: 393 Interpretive Statements SINUS RHYTHM POSSIBLE RIGHT VENTRICULAR CONDUCTION DELAY [RSR (QR) IN V1/V2] Compared to ECG 03/08/2022 16:22:14 No significant changes Electronically Signed On 05-03-2022 16:19:16 ENVIRONMENTAL HEALTH TECHNOLOGIST by Roe Choi M.D. [id number]
[2022-05-02 21:44] VITALS: BP 113/78; PULSE 70; RESP 17; TEMP 36.7; O2SAT 99
--- NOTE | 2022-05-02 22:15 | W.ED.CHESTPA ---
HPI - Chest Pain General: Chief Complaint: Chest Pain Stated Complaint: CP Time Seen by Provider: 05/02/22 22:00 Source: patient Mode of arrival: ambulatory Limitations: no limitations History of Present Illness: 32-year-old female with history hypertension over the last 2 weeks she has intermittent chest pain states that there sharp pains that come on all of a sudden she states do not last for long states she had more pains today denies any pain currently she denies any abdominal pain denies any vomiting or diarrhea denies any shortness of breath Associated symptoms: Deny abdominal pain, dyspnea, fever(s), nausea or vomiting Review of Systems Const: Denies: fever(s), chills, body aches or change in appetite Eyes: Denies: blurry vision or eye discomfort ENMT: Denies: throat pain or dental pain Card: Reports: chest pain Resp: Denies: dyspnea GI: Denies: abdominal pain, nausea, vomiting or diarrhea : Denies: dysuria Musc: Denies: neck pain or back pain Skin/Breast: Denies: rash Neuro: Denies: headache(s) Psych: Denies: depression Anthony/Lymph: Denies: easy bruising All/Imm: Denies: urticaria PFSH ED PFSH: Medical History Cervical disc disorder with myelopathy of mid-cervical region GERD (gastroesophageal reflux disease) No pertinent past medical history neghx:dm,dvt/pe PCP: Terri VILLARREAL Surgical History H/O arthroscopy of knee (~2009) H/O section 12/14/2015--opted to Repeat; Gagandeep 11/25/2013--NRFHR; [place] H/O esophagogastroduodenoscopy (11/04/19) normal H/O wisdom tooth extraction Status post laparoscopic cholecystectomy (11/17/19) Family History Mother Hypertension Family history of thyroid problem Clotting disorder Grandmother Family history of thyroid problem MATERNAL Family/Other Family history of thyroid problem MATERNAL AUNT Patient denies medical problems Diabetes Mellitus, Heart Disease, Stroke, Hypercholesterolemia, Breast Cancer, Ovarian Cancer, Uterine Cancer, Colon Cancer Denies family history of Anesthesia complication Bleeding disorder Physical Exam Const: COMMON NORMALS: no acute distress, patient oriented x3 and healthy appearing HENMT: COMMON NORMALS: normocephalic and atraumatic HEAD & SCALP: normocephalic and atraumatic Eye: COMMON NORMALS: Equal, round and reactive pupils present and EOMs intact bilaterally PUPIL: Yes Equal, round and reactive pupils present Neck/C-Spine: COMMON NORMALS: full ROM and supple Chest: COMMONS NORMALS: normal inspection of the chest and normal palpation of entire chest wall Resp: COMMON NORMALS: normal respiratory effort, No retractions, No use of accessory muscles and clear to auscultation bilaterally AUSCULTATION: clear to auscultation bilaterally Cardio: COMMON NORMALS: regular rate, regular rhythm and No murmurs present (Cardio) RATE: regular rate RHYTHM: regular rhythm GI: COMMON NORMALS: Normal to inspection, nondistended, normoactive bowel sounds present, Soft to palpation, non-tender and no masses PALPATION: Yes Soft to palpation Extremity: COMMON NORMALS: normal to inspection and full ROM Neuro: COMMON NORMALS: patient oriented x3, moves all extremities and no focal motor deficits Psych: COMMON NORMALS: mental status grossly normal, Normal thought process present and cooperative THOUGHT PROCESS: Normal thought process present Skin: COMMON NORMALS: no rashes or lesions noted and no wounds GENERAL SKIN EXAM: no rashes or lesions noted Course Vital Signs: Vital signs: Vital Signs Temperature 98.0 F 05/02/22 21:44 Pulse Rate 71 05/02/22 22:54 Respiratory Rate 16 05/02/22 22:54 Blood Pressure 118/71 05/02/22 22:54 Pulse Oximetry 100 05/02/22 22:54 Oxygen Delivery Me thod 05/02/22 22:54 MDM - Chest Pain Medical Decision Making Patient presents for chest pain that is atypical in nature her troponins here are negative EKGs are normal unchanged from her previous EKGs. She already has cardiology follow-up next week and has a stress test scheduled she is pain-free currently she is stable for discharge she is to follow-up with PCP and return if worsening. Lab Data 05/02/22 19:38 05/02/22 19:38 Radiology Impressions Chest X-Ray 05/02/22 19:09 IMPRESSION: No acute findings. Laboratory Results WBC 13.1 10^3/uL (4.0-10.0) H 05/02/22 19:38 RBC 4.55 10^6/uL (4.1-5.3) 05/02/22 19:38 Hgb 13.0 g/dL (11.5-15.3) 05/02/22 19:38 Hct 40.5 % (37.0-47.0) 05/02/22 19:38 MCV 89.0 fl (81-99) 05/02/22 19:38 MCH 28.6 pg (28.0-34.0) 05/02/22 19:38 MCHC 32.1 g/dL (30.0-36.0) 05/02/22 19:38 RDW 13.2 % (12.1-15.1) 05/02/22 19:38 Plt Count 304 10^3/cmm (130-400) 05/02/22 19:38 MPV 10.2 fL (7.4-10.4) 05/02/22 19:38 Neut % (Auto) 69.3 % 05/02/22 19:38 Lymph % (Auto) 22.0 % 05/02/22 19:38 [place] % (Auto) 5.3 % 05/02/22 19:38 Eos % (Auto) 2.6 % 05/02/22 19:38 Baso % (Auto) 0.4 % 05/02/22 19:38 Neut # (Auto) 9.09 10^3/uL (1.8-7.7) H 05/02/22 19:38 Lymph # (Auto) 2.9 10^3/uL (0.8-4.8) 05/02/22 19:38 [place] # (Auto) 0.7 10^3/uL (0.2-0.9) 05/02/22 19:38 Eos # (Auto) 0.3 10^3/uL (0.0-0.8) 05/02/22 19:38 Baso # (Auto) 0.1 10^3/uL (0.0-0.1) 05/02/22 19:38 Nucleated RBC % (auto) 0 % 05/02/22 19:38 Nucleated RBCs # 0.0 /100WBC 05/02/22 19:38 Sodium 136 mmol/L (136-145) 05/02/22 19:38 Potassium 4.2 mmol/L (3.5-5.1) 05/02/22 19:38 Chloride 100 mmol/L (98-107) 05/02/22 19:38 Carbon Dioxide 24 mmol/L (22-29) 05/02/22 19:38 Anion Gap 16.2 (5-19) 05/02/22 19:38 BUN 9 mg/dL (6-20) 05/02/22 19:38 Creatinine 0.6 mg/dL (0.5-0.9) 05/02/22 19:38 GFR Calculation 115.1 mL/min (90-130) 05/02/22 19:38 Glucose 70 mg/dL (65-115) 05/02/22 19:38 Calculated Osmolality 279 mOsm/kg (285-295) L 05/02/22 19:38 Calcium 9.3 mg/dL (8.5-10.5) 05/02/22 19:38 Total Bilirubin 0.2 mg/dL (0.15-1.2) 05/02/22 19:38 AST 20 U/L (0-32) 05/02/22 19:38 ALT 43 U/L (0-33) H 05/02/22 19:38 Alkaline Phosphatase 122 U/L (35-105) H 05/02/22 19:38 Troponin T Baseline 6 ng/L (0-10) 05/02/22 19:38 Troponin T 120 Minute 6.00 ng/L (0-10) 05/02/22 22:04 Total Protein 6.7 g/dL (6.6-8.7) 05/02/22 19:38 Albumin 4.4 g/dL (3.5-5.2) 05/02/22 19:38 Globulin 2.3 g/dL (1.3-4.6) 05/02/22 19:38 EKG Data EKG 1: I personally reviewed and interpreted this EKG as follows: EKG interpretation date: 05/02/22 EKG interpretation time: 21:59 Interpretation: nsr hr [address] or t wave abnormalities qrs 84 qtc 385 Discharge Plan Discharge Patient Disposition: Home Clinical Impression: Chest pain Condition: Stable Prescriptions: No Action venlafaxine 75 mg tablet 75 mg PO QAM tizanidine 4 mg capsule 4 mg PO TID PRN (Reason: Muscle Spasm) varenicline [Chantix] 1 mg tablet 1 mg PO QAM metoprolol tartrate 25 mg tablet 25 mg PO BID Qty: 180 3RF amlodipine 10 mg tablet 10 mg PO QAM buspirone 7.5 mg tablet 7.5 mg PO BID PRN (Reason: Anxiety) albuterol sulfate [ProAir HFA] 90 mcg/actuation Hfa Aerosol Inhaler 2 puff INHALATION QID PRN (Reason: Shortness Of Breath) ondansetron 4 mg tablet,disintegrating 4 mg PO TID PRN (Reason: Nausea And Vomiting) Discharge Orders: Discharge ED (Routine); Ordered 05/02/22 Ordered By: Dinesh Woodward Referrals: Siria De La Torre FNP [Primary Care Provider] - Discharge Diet: Advance as tolerated Discharge Activity: Resume usual activity Patient Instructions: Chest Pain (ED) Coding Level of Care Code ED Mash Filter Operator for Morro Vasquez
[2022-05-02 22:54] VITALS: BP 118/71; PULSE 71; RESP 16; O2SAT 100
[2022-05-02 23:06] VITALS: BP 118/71; PULSE 72; RESP 16; O2SAT 100
[2022-05-03 00:11] LABS: Troponin 5 2HR Delta 0 ABS# (0-10)
== END 2022-05-02 23:07 | disposition home or self-care (01) ==
PROVIDERS: Emergency Provider Emergency Medicine; PCP Nurse Practitioner Family
DX: R07.9 Chest pain, unspecified (principal)
CPT/HCPCS: 36415; 71045; 80053; 84484; 85025; 93005; 99285

== ENCOUNTER 2022-05-10 13:21 | Outpatient (CLI) | payer MEDICAID, SELFPAY ==
--- NOTE | 2022-05-10 13:45 | US_ITS ---
WS: [id number] ULTRASOUND THYROID TECHNIQUE: Ultrasound of the thyroid. CLINICAL INFORMATION: thyromegaly COMPARISON: None. FINDINGS: Thyroid: Diffusely heterogeneous thyroid echotexture with small cystic and hypoechoic micronodules. F indings can be seen with Lacey's thyroiditis the appropriate clinical setting. Normal vascularity . Spongiform incidental cyst superior pole RIGHT thyroid measuring 4 x 4 mm Right thyroid lobe: 5.2 cm x 1.8 cm x 1.9 cm Left thyroid lobe: 5.7 cm x 1.6 cm x 1.3 cm. Isthmus: 0.3 mm. Cervical lymphadenopathy: None. US/US thyroid [id number] IMPRESSION: Diffusely heterogeneous thyroid echotexture with small cystic and hypoechoic mi cronodules. Findings can be seen with Lacey's thyroiditis. Recommend correl ation with thyroid function studies.
== END 2022-05-10 13:22 | disposition home or self-care (01) ==
LOC: RAD 13:26
PROVIDERS: PCP Nurse Practitioner Family; Visit Provider Internal Medicine
DX: E01.0 Iodine-deficiency related diffuse (endemic) goiter (principal)
CPT/HCPCS: 76536

== ENCOUNTER 2022-05-22 13:54 | Outpatient (CLI) | payer MEDICAID, SELFPAY ==
--- NOTE | 2022-05-22 14:15 | USCV_ITS ---
Lena Grimaldo Age: 32 Gender: F : 1990 Exam Date: 05/22/2022 14:26 Ordering Phys: Saravanan Malone M.D ([email or web address]) Technologist: Exam Location: [facility] [place]ication: chest pain murmur BP: 130 / 70 HR: 65 Rhythm: Sinus Technical Quality: Adequate MEASUREMENTS (Male / Female) Normal Values 2D ECHO LV Diastolic Diameter PLAX 4.5 cm 4.2 - 5.9 / 3.9 - 5.3 cm LV Systolic Diameter PLAX 3.3 cm IVS Diastolic Thickness 1.1 cm 0.6 - 1.0 / 0.6 - 0.9 cm IVS Systolic Thickness 1.3 cm LVPW Diastolic Thickness 0.8 cm 0.6 - 1.0 / 0.6 - 0.9 cm LVPW Systolic Thickness 1.3 cm LVOT Diameter 1.9 cm LV Ejection Fraction 2D Teich 53.3 % LV Ejection Fraction MOD 2C 73.9 % LV Ejection Fraction 2C AL 74.2 % LA Diameter 3.2 cm IVC Diameter 1.4 cm M-MODE Aortic Annulus Diameter 2.8 cm LA Ao Ratio MM 1.1 MV E Point Septal Separation 1.2 cm DOPPLER AV Peak Velocity 137.0 cm/s LVOT Peak Velocity 89.0 cm/s AV Area Cont Eq vti 2.1 cm squared AV Area Cont Eq pk 1.8 cm squared MV Area PHT 5.0 cm squared Mitral E to A Ratio 1.4 MV E' Velocity 55.0 cm/s Mitral E to MV E' Ratio 5.3 Mitral E to LV E' Lateral Ratio 4.8 Mitral E to LV E' Septal Ratio 5.9 TR Peak Velocity 156.3 cm/s TR Peak Gradient 9.8 mmHg TV Peak E Velocity 101.0 cm/s Right Atrial Pressure 3.0 mmHg Pulmonary Artery Systolic Pressu 12.8 mmHg RV Acceleration Time 0.1 s FINDINGS Left Ventricle Left ventricle is normal in size. LV systolic function is normal with EF 55 to 60%. No regional wall motion abnormalities are seen. Right Ventricle Normal in size and function Right Atrium Normal in size Left Atrium Normal in size Mitral Valve Structurally normal mitral valve.Trace mitral regurgitation. Aortic Valve Structurally normal aortic valve. No significant stenosis or regurgitation. Tricuspid Valve Mild tricuspid regurgitation. Pulmonary artery systolic pressure is normal. Pulmonic Valve Not well-visualized Pericardium Normal Aorta Normal in size IVC Appears to be normal CONCLUSIONS LV systolic function is normal with EF 55 to 60%. No regional wall motion abnormalities are seen. Trace mitral regurgitation. Mild tricuspid regurgitation No comparison studies are available Saravanan Malone MD (Electronically Signed) Final Date: 28 May 2022 13:29 S
== END 2022-05-22 13:55 | disposition home or self-care (01) ==
LOC: RAD 13:58
PROVIDERS: PCP Nurse Practitioner Family; Visit Provider Internal Medicine
DX: R07.9 Chest pain, unspecified (principal); R01.1 Cardiac murmur, unspecified; I08.1 Rheumatic disorders of both mitral and tricuspid valves
CPT/HCPCS: 93306

== ENCOUNTER 2022-06-05 12:42 | Outpatient (CLI) | payer MEDICAID, SELFPAY ==
--- NOTE | 2022-06-05 | ECG_ITS ---
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 Interpretive Statements NAME OF STUDY: TREADMILL STRESS TEST INDICATION: [Shortness of Breath; Chest Pain, ] EXERCISE DATA: The patient was exercised by Shayan protocol. Baseline heart rate was 82 beats per minute. Baseline blood pressure was 115/79 millimeters of mercury. Target heart rate was 159 beats per minute. Maximum heart rate achieved was 162 which was 101 % of the target heart rate. Maximum blood pressure was 204/83 millimeters of mercury. Total exercise time was 9 minutes. Maximum METs achieved was 10.2 . The reason for ending the test was maximal effort achieved. The patient complained of shortness of breath during the stress test, which then resolved at the end of the test. ELECTROCARDIOGRAM: BASELINE: Showed sinus rhythm, normal axis, no significant ST-T changes at the baseline noted. [] EXERCISE: At the peak exercise level, [] No significant ST-T changes suggestive of ischemia noted. [] RECOVERY: During the recovery period, heart rate dropped appropriately. No significant ST-T changes in the recovery suggestive of ischemia noted. [] CONCLUSION: 1. Exercise capacity is good 2. Heart rate response was appropriate 3. Blood pressure response was appropriate 4. Symptoms not suggestive of ischemia. 5. Stress test is not suggestive of ischemia. Electronically Signed On 06-11-2022 15:54:27 CDT by Saravanan Malone M.D. [id number]
[2022-06-05 12:51] VITALS: BMI 32.2
[2022-06-05 13:33] VITALS: BP 133/61; PULSE 96
== END 2022-06-05 12:43 | disposition home or self-care (01) ==
LOC: CDL 12:44
PROVIDERS: PCP Nurse Practitioner Family; Visit Provider Internal Medicine
DX: R07.9 Chest pain, unspecified (principal); R06.02 Shortness of breath
CPT/HCPCS: 93017

== ENCOUNTER 2022-07-10 10:54 | Emergency (ER) | payer MEDICAID, SELFPAY ==
[2022-07-10 11:26] VITALS: BP 133/84; PULSE 71; RESP 14; TEMP 36.7; O2SAT 100; BMI 33.2
--- NOTE | 2022-07-10 11:36 | ED_ITS ---
HPI - Dental/Oral General: Chief complaint: Dental/Oral Stated complaint: Jaw pain Time Seen by Provider: 07/10/22 11:35 Source: patient Mode of arrival: ambulatory Limitations: no limitations History of Present Illness: Patient is a 32-year-old female presents to ED today with a complaint pain near her left jaw. Patient states pain initially started after dental procedures/dental injections. Not worsening in nature. Patient states she has since followed up with a dentist multiple times and he has told her it is most likely musculoskeletal and has prescribed her cyclobenzaprine but she does not feel like this is helping. She has had other leftover medications that she has tried such as Zanaflex that did not help. She does feel like Meloxicam helped. Is also been doing ice and Tylenol. She has not noticed any swelling. She has full range of motion of her jaw. Some chronic audible clicking to TMJ. She denies a headache. No fevers. Onset (ago): week(s) Duration: constant Severity: moderate Relieving factors: NSAIDs (meloxicam) Exacerbating factors: chewing Context: history of dental caries and trauma (mechanism) Associated symptoms: Reports no associated symptoms; Denies fever(s) or odynophagia Treatment prior to arrival: oral analgesic Review of Systems Const: Denies: fever(s), chills, body aches, fatigue or malaise ENMT: Denies: throat pain, odynophagia, hoarseness, mouth pain, swelling of lips/tongue, oral sores, bleeding gums, dental pain, dry mouth, halitosis, nasal discharge, nasal congestion or sinus pain Card: Denies: chest pain Resp: Denies: dyspnea GI: Denies: nausea or vomiting Musc: Denies: neck pain Skin/Breast: Denies: rash Neuro: Denies: headache(s), lack of coordination, dizziness, vertigo or confusion PFS ED PFSH: Medical History Cervical disc disorder with myelopathy of mid-cervical region GERD (gastroesophageal reflux disease) No pertinent past medical history neghx:dm,dvt/pe PCP: Terri VILLARREAL Surgical History H/O arthroscopy of knee (~2009) H/O section 12/14/2015--opted to Repeat; [facility] 11/25/2013--NRFHR; [place] H/O esophagogastroduodenoscopy (11/04/19) normal H/O wisdom tooth extraction Status post laparoscopic cholecystectomy (11/17/19) Family History Mother Hypertension Family history of thyroid problem Clotting disorder Grandmother Family history of thyroid problem MATERNAL Family/Other Family history of thyroid problem MATERNAL AUNT Patient denies medical problems Diabetes Mellitus, Heart Disease, Stroke, Hypercholesterolemia, Breast Cancer, Ovarian Cancer, Uterine Cancer, Colon Cancer Denies family history of Anesthesia complication Bleeding disorder Social History Substance/Drug Use: never Physical Exam Const: COMMON NORMALS: no acute distress, average body habitus, patient oriented x3, no limitations, healthy appearing, alert and well nourished GENERAL APPEARANCE: cooperative ORIENTATION/CONSCIOUSNESS: Yes awake, Yes oriented to person, Yes oriented to place and Yes oriented to time HENMT: COMMON NORMALS: normocephalic, atraumatic, hearing grossly normal bilaterally, external ears normal, EAC's normal, TM's normal bilaterally, Normal external nose present, Normal nasal mucous membranes and turbinates present, moist oral mucous membranes, oropharynx normal, dentition normal and gingiva normal HEAD & SCALP: normal to inspection, normocephalic and atraumatic FACE & SINUS: normal facial exam and other (tenderness to L masseter muscle; no swelling appreciated); no erythema, no edema and no fluctuance NOSE: Normal external nose present and Normal nasal mucous membranes and turbinates present EXTERNAL EAR: Yes external ears normal EXTERNAL AUDITORY CANAL: EAC's normal TYMPANIC MEMBRANE: TM's normal bilaterally MOUTH: Normal oral and palatal mucosa present, lip normal, tongue normal and Normal salivary glands and ducts present TEETH & GINGIVA: Yes fair dentition THROAT: posterior oropharynx normal, tonsils normal and uvula midline OTHER: can fully open/close jaw and move from side to side without much discomfort; occasional clicking from TMJ that she states is chronic Eye: GENERAL EYE: appearance normal, both eyes and all related structures Neck/C-Spine: COMMON NORMALS: full ROM and no lymphadenopathy GENERAL: Yes normal visual inspection, No anterior neck swelling and No submandibular swelling Neuro: COMMON NORMALS: patient oriented x3 SENSORIUM/ORIENTATION: Yes a lert, Yes oriented to person, Yes oriented to place and Yes oriented to time Course Vital Signs: Vital signs: Vital Signs Temperature 98.1 F 07/10/22 11:26 Pulse Rate 71 07/10/22 11:26 Respiratory Rate 14 07/10/22 11:26 Blood Pressure 133/84 07/10/22 11:26 Pulse Oximetry 100 07/10/22 11:26 Oxygen Delivery Me thod Room Air 07/10/22 11:26 MDM - Dental/Oral Medical Decision Making No evidence of dental or facial infection. Her pain has not seemed to worsen since onset-just has failed to improve. No other systemic symptoms. She states she did get relief from meloxicam when she tried this at home so we will provide her a prescription for this. We spoke about possibly trying some gabapentin and she feels she would like to try this. She has an appointment with her dentist on Sunday for follow-up. She states she will make an appointment through primary care as well in case symptoms do not seem to be improving. Discharge Plan Discharge Patient Disposition: Home Clinical Impression: Localized myalgia of masseter Condition: Stable Prescriptions: New gabapentin 300 mg capsule See Rx Instructions .ROUTE .COMPLEX Qty: 30 0RF Rx Instructions: Take 300 mg PO on day 1. Then 300mg PO BID on day 2. You may then take 300mg TID thereafter meloxicam 7.5 mg tablet 7.5 mg PO DAILY Qty: 14 0RF No Action venlafaxine 75 mg tablet 75 mg PO QAM tizanidine 4 mg capsule 4 mg PO TID PRN (Reason: Muscle Spasm) varenicline [Chantix] 1 mg tablet 1 mg PO QAM metoprolol tartrate 25 mg tablet 25 mg PO BID Qty: 180 3RF hydrocodone-acetaminophen 5-325 mg tablet 1 tab PO Q6H PRN (Reason: pain) 5 Days Qty: 20 0RF levothyroxine 13 mcg capsule 9.4 mcg PO DAILY amlodipine 10 mg tablet 10 mg PO QAM buspirone 7.5 mg tablet 7.5 mg PO BID PRN (Reason: Anxiety) albuterol sulfate [ProAir HFA] 90 mcg/actuation Hfa Aerosol Inhaler 2 puff INHALATION QID PRN (Reason: Shortness Of Breath) ondansetron 4 mg tablet,disintegrating 4 mg PO TID PRN (Reason: Nausea And Vomiting) Discharge Orders: Discharge ED (Routine); Ordered 07/10/22 Ordered By: Serina Andre Referrals: Siria De La Torre FNP [Primary Care Provider] - Coding Level of Care Code ED Construction Project Manager for Morro Vasquez
== END 2022-07-10 12:28 | disposition home or self-care (01) ==
PROVIDERS: Emergency Provider Physician Assistant; PCP Nurse Practitioner Family
DX: M79.11 Myalgia of mastication muscle (principal)
CPT/HCPCS: 99283

== ENCOUNTER 2022-07-18 16:00 | Outpatient (CLI) | payer MEDICAID, SELFPAY | END 2022-07-18 16:01 | disposition home or self-care (01) | LOC: SLEEP 07-19 12:59 | PROVIDERS: PCP Nurse Practitioner Family; Visit Provider Internal Medicine | DX: R53.83 Other fatigue (principal); G47.33 Obstructive sleep apnea (adult) (pediatric) | CPT/HCPCS: G0399 ==

== ENCOUNTER 2022-08-09 14:30 | Outpatient (CLI) | payer MEDICAID, SELFPAY ==
[2022-08-09 15:22] LABS: Anion Gap 13.5 (5-19); Blood Urea Nitrogen 9 mg/dL (6-20); Calcium 8.7 mg/dL (8.5-10.5); Carbon Dioxide 27 mmol/L (22-29); Chloride 102 mmol/L (98-107); Glomerular Filtration Rate 82.6 mL/min (90-130); Glucose 84 mg/dL (65-115); NT Pro B Type Natriuretic Pept 78 pg/mL (0-125); Osmolality Calculated 284 mOsm/kg (285-295); Potassium 4.5 mmol/L (3.5-5.1); Sodium 138 mmol/L (136-145)
== END 2022-08-09 14:31 | disposition home or self-care (01) ==
LOC: LAB 14:34
PROVIDERS: PCP Nurse Practitioner Family; Visit Provider Internal Medicine
DX: I10 Essential (primary) hypertension (principal)
CPT/HCPCS: 36415; 80048; 83880

== ENCOUNTER → 2022-10-06 11:00 | Outpatient (BNVA) | payer MEDICAID, SELFPAY | PROVIDERS: PCP Nurse Practitioner Family; Visit Provider Internal Medicine Pulmonary Disease | DX: J30.2 Other seasonal allergic rhinitis (principal); R06.02 Shortness of breath; E06.3 Autoimmune thyroiditis; G47.33 Obstructive sleep apnea (adult) (pediatric); E01.0 Iodine-deficiency related diffuse (endemic) goiter; Z79.899 Other long term (current) drug therapy | CPT/HCPCS: 36415; 82785; 84439; 84443; 86003 ==

== ENCOUNTER 2022-10-24 06:58 | Outpatient (CLI) | payer MEDICAID, SELFPAY ==
[2022-10-24 07:26] VITALS: PULSE 66; RESP 18; O2SAT 98
[2022-10-24] MEDS: albuterol 2.5 mg/3 mL Neb INHALATION (07:26)
[2022-10-24 07:31] VITALS: PULSE 68
== END 2022-10-24 06:59 | disposition home or self-care (01) ==
LOC: RT 06:58
PROVIDERS: PCP Nurse Practitioner Family; Visit Provider Internal Medicine Pulmonary Disease
DX: R06.02 Shortness of breath (principal)
CPT/HCPCS: 94060; 94618; 94726; 94729; J7613

== ENCOUNTER 2022-12-29 10:06 | Outpatient (CLI) | payer MEDICAID, SELFPAY ==
[2022-12-29 10:52] LABS: Free T4 Free Thyroxine 1.09 ng/dL (0.82-1.77); Thyroid Stimulating Hormone 10.87 uIU/mL (0.27-4.20)
== END 2022-12-29 10:07 | disposition home or self-care (01) ==
LOC: LAB 10:08
PROVIDERS: PCP Nurse Practitioner Family; Visit Provider Internal Medicine
DX: E06.3 Autoimmune thyroiditis (principal); E01.0 Iodine-deficiency related diffuse (endemic) goiter; F32.A Depression, unspecified; G47.33 Obstructive sleep apnea (adult) (pediatric); R53.83 Other fatigue
CPT/HCPCS: 36415; 84439; 84443

== ENCOUNTER → 2023-01-22 08:38 | Outpatient (BNVA) | payer MEDICAID, SELFPAY | PROVIDERS: PCP Nurse Practitioner Family; Visit Provider Specialist | DX: S83.241A Other tear of medial meniscus, current injury, right knee, initial encounter (principal); S83.281A Other tear of lateral meniscus, current injury, right knee, initial encounter; M25.561 Pain in right knee; X58.XXXA Exposure to other specified factors, initial encounter | CPT/HCPCS: 73560; 73565 ==

== ENCOUNTER 2023-02-28 12:10 | Outpatient (CLI) | payer MEDICAID, SELFPAY ==
--- NOTE | 2023-02-28 12:13 | MR_ITS ---
WS: [id number] MRI RIGHT KNEE ARTHROGRAM TECHNIQUE: Axial PD, coronal PD fat sat, coronal PD, sagittal PD, and sagittal PD fat-sat images obta ined. Additional imaging obtained post intra-articular administration of contrast CLINICAL INFORMATION: KNEE PAIN/INJURY COMPARISON: MRI 03/27/2022 FINDINGS: Distal quadriceps and patella tendons are intact. Hypertrophic patella. Normal ACL and PCL. Tiny supr apatellar effusion. Prior postoperative changes meniscectomy anterior horn lateral meniscus is new f rom previous. Posterior horn lateral meniscus appears intact. Medial meniscus appears intact. 5 mm focus of chondromalacia in the lateral patellar facet is unchanged. Normal medial and lateral pa tellar retinaculum. No subchondral edema. Normal medial and lateral collateral ligaments. Normal popl iteus. Normal popliteal fossa. Normal visualized soft tissues. No other suspicious findings. IMPRESSION: 1. Normal ACL and PCL. 2. Interval postoperative changes resection of the anterior horn lateral meniscus. 3. No acute appearing meniscal tears today. Normal medial meniscus. 4. Stable 5 mm focus of chondromalacia involving the lateral patellar facet unchanged. No subchondra l edema. 5. No other suspicious findings. Outbridge grading: grade II: blister-like swelling/fraying of articular cartilage extending to surfac e
--- NOTE | 2023-02-28 12:30 | USR_ITS ---
PROCEDURE INFORMATION: Exam: US Soft Tissue Head and Neck, Thyroid Exam date and time: 02/28/2023 12:42 PM Age: 33 years old Clinical indication: Other: Thyromegaly. Prior diagnosis of Lacey's thyroiditis. TECHNIQUE: Imaging protocol: Real-time ultrasound scan of the neck with image documentation. Exam focused on the thyroid. COMPARISON: US thyroid [id number] 05/10/2022 2:12 PM FINDINGS: Thyroid gland is unremarkable in size and contour with the right lobe measuring 4.1 x 1.6 x 1.1 cm left lobe measuring 4.9 x 1.0 x 1.4 cm. Thyroid isthmus is not thickened measuring 3 mm. There is redemonstration of diffuse textural heterogeneity with numerous small cystic areas throughout both lobes with relatively normal vascularity somewhat progressed from prior study likely secondary to chronic thyroiditis. No solid nodules detected. No significant interval changes appreciated. US/US thyroid [id number] IMPRESSION: Normal size thyroid gland with diffuse textural changes both lobes progressed from earlier exam and likely secondary to chronic thyroiditis.
--- NOTE | 2023-02-28 13:00 | IR_ITS ---
WS: [id number] RIGHT KNEE ARTHROGRAM Fluoroscopic guided right knee arthrogram. CLINICAL INFORMATION: KNEE PAIN/INJURY TECHNIQUE: The procedure including risks, benefits, and complications were discussed with the patient , who agreed to proceed. Timeout was performed. Using sterile technique, the patient was prepped and draped in the usual sterile fashion. After 1% lidocaine injection using fluoroscopic guidance, a 22-g auge spinal needle was advanced into the RIGHT patellofemoral compartment. Subsequently 40 cc of a mi xture containing 30 cc normal saline, 10 cc Omnipaque 240, and 0.2 cc gadolinium was administered. No immediate complications. FLUOROSCOPY TIME: 0min [id number] # of spot films: 1 IMPRESSION: 1. Uncomplicated right knee fluoroscopic guided arthrogram. Contrast extension from the intercondyla r notch to the lateral joint capsule due to prior partial lateral meniscectomy 2. MRI to follow.
== END 2023-02-28 12:11 | disposition home or self-care (01) ==
LOC: RAD 12:11
PROVIDERS: PCP Nurse Practitioner Family; Visit Provider Internal Medicine
DX: S83.241A Other tear of medial meniscus, current injury, right knee, initial encounter (principal); S83.281A Other tear of lateral meniscus, current injury, right knee, initial encounter; X58.XXXA Exposure to other specified factors, initial encounter; M22.41 Chondromalacia patellae, right knee; Z98.890 Other specified postprocedural states; E01.0 Iodine-deficiency related diffuse (endemic) goiter
CPT/HCPCS: 27369; 73723; 76536; 77002; A9577; Q9966

== ENCOUNTER 2023-03-08 16:50 | Outpatient (CLI) | payer MEDICAID, SELFPAY ==
[2023-03-08 17:44] LABS: Free T4 Free Thyroxine 1.44 ng/dL (0.82-1.77); Thyroid Stimulating Hormone 3.05 uIU/mL (0.27-4.20)
== END 2023-03-08 16:51 | disposition home or self-care (01) ==
PROVIDERS: PCP Nurse Practitioner Family; Visit Provider Internal Medicine
DX: E06.3 Autoimmune thyroiditis (principal)
CPT/HCPCS: 36415; 84439; 84443

== ENCOUNTER 2023-05-31 15:53 | Outpatient (CLI) | payer MEDICAID, SELFPAY ==
[2023-05-31 16:58] LABS: Free T4 Free Thyroxine 1.56 ng/dL (0.82-1.77); Thyroid Stimulating Hormone 1.04 uIU/mL (0.27-4.20)
== END 2023-05-31 15:54 | disposition home or self-care (01) ==
LOC: LAB 15:55
PROVIDERS: PCP Nurse Practitioner Family; Visit Provider Internal Medicine
DX: E01.0 Iodine-deficiency related diffuse (endemic) goiter (principal); E06.3 Autoimmune thyroiditis
CPT/HCPCS: 36415; 84439; 84443

== ENCOUNTER → 2023-09-10 14:31 | Outpatient (BNVA) | payer MEDICAID, SELFPAY | PROVIDERS: PCP Nurse Practitioner Family; Visit Provider Specialist | DX: S83.281A Other tear of lateral meniscus, current injury, right knee, initial encounter (principal); X58.XXXA Exposure to other specified factors, initial encounter; M25.561 Pain in right knee | CPT/HCPCS: 73560; 73565 ==

== ENCOUNTER → 2023-10-05 09:24 | Outpatient (BNVA) | payer MEDICAID, SELFPAY | PROVIDERS: PCP Nurse Practitioner Family; Visit Provider Internal Medicine | DX: E06.3 Autoimmune thyroiditis (principal); R53.83 Other fatigue; E01.0 Iodine-deficiency related diffuse (endemic) goiter | CPT/HCPCS: 36415; 84439; 84443 ==

== ENCOUNTER 2023-10-11 08:08 | Day surgery (SDC) | payer MEDICAID, SELFPAY ==
[2023-10-11] VITALS (12 sets, daily range): BP systolic 106–131; BP diastolic 60–84; PULSE 58–72; RESP 12–18; TEMP 36.3–36.4; O2SAT 98–100; BMI 33.2
[2023-10-11 08:34] LABS: OR HCG Qualitative Urine Negative (Negative)
[2023-10-11] MEDS: sodium chloride 0.9% 1,000 ML 30 ML IV (08:45)
[2023-10-11] MEDS: acetaminophen 1,000 MG/100 ML PIGGYBACK 400 MG IV (08:45)
[2023-10-11] MEDS: gabapentin 300 mg Capsule PO (08:45)
[2023-10-11] MEDS: CELEcoxib 200 mg Capsule 400 MG PO (08:46)
--- NOTE | 2023-10-11 09:09 | ANES.PREANE2 ---
Pre-Anesthetic Assessment Height/Weight: Height 1.52 m Weight 77.111 kg Temp Pulse Resp BP Pulse Ox O2 Del Method 97.6 F 61 18 110/84 100 Room Air 10/11/23 08:25 10/11/23 08:25 10/11/23 08:25 10/11/23 08:25 10/11/23 08:25 10/11/23 08:55 Operation Date: 10/11/23 10:05 Proposed Procedures p Knee Arthroscopy Knee Arthroscopy w/ partial Medial Menisectomy(Right) - Feli Renee MD Familial anesthetic complications: None Was Beta Karen taken within 24 hours: Yes Was Clonidine taken within 24 hours: N/A Last intake: Intake Last Liquid Date 10/10/23 Last Liquid Time 19:30 Last Solid Date 10/10/23 Last Solid Time 19:30 Social Tobacco (vapes) and No alcohol Exam alert, oriented x 3, clear to auscultation bilaterally and regular rate & rhythm Airway Mallampati: Class II Dentition: full Pulmonary Asthma CV/HEM Hypertension and Palpitations incomplete RBB Metabolic Diabetes Mellitus and Thyroid Disease Anesthetic Plan ASA status: 3 Anesthesia: General Risk of > 500 ml blood loss (7ml/kg in children): No Medications/Allergies Home Medications Medication Instructions Recorded Confirmed Last Taken Type ondansetron 4 mg disintegrating 4 mg PO TID PRN Nausea And Vomiting 03/08/22 10/11/23 Unknown History tablet metoprolol tartrate 25 mg tablet 25 mg PO BID #180 tabs 06/19/23 10/10/23 10/11/23 Rx metformin 500 mg tablet,extended 1,000 mg (2 x 500 mg) PO BID #120 10/05/23 10/10/23 10/10/23 Rx release 24 hr tabs levothyroxine 100 mcg tablet 100 mcg PO BEDTIME 10/10/23 10/10/23 10/10/23 History losartan 50 mg tablet 50 mg PO DAILY 10/10/23 10/10/23 10/10/23 History Allergies Allergy/AdvReac Type Severity Reaction Status Date / Time sulfamethoxazole Allergy HIVES Verified 10/11/23 08:35 [From Bactrim] trimethoprim [From Bactrim] Allergy HIVES Verified 10/11/23 08:35 ciprofloxacin [From Cipro] AdvReac VOMITING Verified 10/11/23 08:35 Current Medications Generic Name Dose Route Start Last Admin Trade Name Rodrigoq PRN Reason Stop Dose Admin Sodium Chloride 1,000 mls @ 30 mls/hr 10/11/23 08:15 10/11/23 08:45 Sodium Chloride 0.9% IV 10/12/23 08:14 30 mls/hr .Q24H CHARITY Administration PFSH Anesthesia Medical History No pertinent past medical history neghx:dm,dvt/pe 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 GERD (gastroesophageal reflux disease) Cervical disc disorder with myelopathy of mid-cervical region Surgical History Status post laparoscopic cholecystectomy (11/17/19) H/O esophagogastroduodenoscopy (11/04/19) normal H/O wisdom tooth extraction H/O arthroscopy of knee (~2009) 2 scopes H/O section 12/14/2015--opted to Repeat; [facility] 11/25/2013--NRFHR; [place] Family History Mother Hypertension Family history of thyroid problem Clotting disorder Grandmother Family history of thyroid problem MATERNAL Family/Other Family history of thyroid problem MATERNAL AUNT Patient denies medical problems Diabetes Mellitus, Heart Disease, Stroke, Hypercholesterolemia, Breast Cancer, Ovarian Cancer, Uterine Cancer, Colon Cancer Denies family history of Anesthesia complication Bleeding disorder Social History Smoking and tobacco/nicotine status: never used tobacco/nicotine Quit status (tobacco/nicotine): has quit using Year quit tobacco: 2021 Former quit date comment: 0.5 ppd X 15 years Substance/Drug Use: never Female Reproductive History Date of last menstrual period: 10/09/23 Data Anesthesia 10/11/23 08:41 Cardiac Studies: Echocardiogram 05/22/22 Cardiac Event Monitor 06/19/23 Holter Monitor 03/20/22
[2023-10-11 09:19] LABS: Blood Urea Nitrogen 9 mg/dL (6-20); Calcium 9.3 mg/dL (8.5-10.5); Carbon Dioxide 22 mmol/L (22-29); Chloride 101 mmol/L (98-107); Creatinine Clr Calc Pharmacy 90.9516; Glomerular Filtration Rate 82.1 mL/min (90-130); Glucose 85 mg/dL (65-115); Osmolality Calculated 276 mOsm/kg (285-295); Sodium 134 mmol/L (136-145)
[2023-10-11 09:32] LABS: Anion Gap 15.3 (5-19); Potassium 4.3 mmol/L (3.5-5.1)
--- NOTE | 2023-10-11 10:55 | P.HP_ITS ---
Same Day Surgery H&P Indication for Procedure/HPI DATE OF PROCEDURE: October 11, 2023 CHIEF COMPLAINT/INDICATIONFOR SURGICAL PROCEDURE: Right knee pain PREOP DIAGNOSIS: Medial and lateral meniscal tears PLANNED PROCEDURE: Operation Date: 10/11/23 10:05 Proposed Procedures p Knee Arthroscopy Knee Arthroscopy w/ partial Medial Menisectomy(Right) - Feli Renee MD Medications/Allergies* Home Medications Medication Instructions Recorded Confirmed Type ondansetron 4 mg disintegrating 4 mg PO TID PRN Nausea And Vomiting 03/08/22 10/11/23 History tablet levothyroxine 100 mcg tablet 100 mcg PO BEDTIME 10/10/23 10/10/23 History losartan 50 mg tablet 50 mg PO DAILY 10/10/23 10/10/23 History Allergies/Adverse Reactions Allergy/AdvReac Type Severity Reaction Status Date / Time sulfamethoxazole Allergy HIVES Verified 10/11/23 08:35 [From Bactrim] trimethoprim [From Bactrim] Allergy HIVES Verified 10/11/23 08:35 ciprofloxacin [From Cipro] AdvReac VOMITING Verified 10/11/23 08:35 Current Medications: Generic Name Dose Route Start Last Admin Trade Name Freq PRN Reason Stop Dose Admin Sodium Chloride 1,000 mls @ 30 mls/hr 10/11/23 08:15 10/11/23 08:45 Sodium Chloride 0.9% IV 10/12/23 08:14 30 mls/hr .Q24H CHARITY Administration Pertinent History/Comorbid Conditions* Medical History (Updated 06/01/23 @ 11:41 by Savannah Jenkins APN, GLORY) No pertinent past medical history neghx:dm,dvt/pe 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 GERD (gastroesophageal reflux disease) Cervical disc disorder with myelopathy of mid-cervical region Surgical History (Updated 06/01/23 @ 11:41 by Savannah Jenkins APN, GLORY) Status post laparoscopic cholecystectomy (11/17/19) H/O esophagogastroduodenoscopy (11/04/19) normal H/O wisdom tooth extraction H/O arthroscopy of knee (~2009) 2 scopes H/O section 12/14/2015--opted to Repeat; [facility] 11/25/2013--NRFHR; [place] Family History (Updated 10/16/19 @ 14:21 by Daria Neff LPN) Clotting disorder Mother Patient denies medical problems Family/Other Diabetes Mellitus, Heart Disease, Stroke, Hypercholesterolemia, Breast Cancer, Ovarian Cancer, Uterine Cancer, Colon Cancer Family history of thyroid problem Mother Grandmother MATERNAL Family/Other MATERNAL AUNT Hypertension Mother Denies family history of Anesthesia complication Bleeding disorder Social History Smoking and tobacco/nicotine status: never used tobacco/nicotine Quit status (tobacco/nicotine): has quit using Year quit tobacco: 2021 Former quit date comment: 0.5 ppd X 15 years Substance/Drug Use: never Pertinent Exam Findings alert, oriented x 3, clear to auscultation bilaterally, regular rate & rhythm and operative site marked Related Problem List Diagnoses (1) Tear of lateral meniscus of right knee: Qualifiers: Tear current or old: current Encounter type: initial encounter Meniscus tear of knee type: other type Qualified Code(s): S83.281A - Other tear of lateral meniscus, current injury, right knee, initial encounter (2) Tear of medial meniscus of right knee, current: Recommendations Surgery/Procedure today Coding Level of Care Code Acute Code for Chg Fwd Diagnoses Other tear of lateral meniscus of right knee as current injury, initial encounter S83.281A Tear current or old: current Encounter type: initial encounter Meniscus tear of knee type: other type Tear of medial meniscus of right knee, current S83.241A
[2023-10-11] MEDS: ceFAZolin 2,000 MG in sodium chloride 0.9% (plus) 50 ML 100 MG IV (11:04)
[2023-10-11] MEDS: morphine 4 mg/mL SDV 1 mL 8 MG XX (12:00)
[2023-10-11] MEDS: ROPivacaine 0.5% SDV 30 mL 150 MG INJECTION (12:00)
[2023-10-11] MEDS: ondansetron 2 mg/ML SDV 2 mL 4 MG IVP (12:42)
--- NOTE | 2023-10-11 12:58 | PM.OP ---
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 MRI demonstrated there was a chondromalacia of focus measuring 5 mm on the lateral patellar facet. There were postoperative changes, but no obvious meniscal tears. The patient had longstanding pain and wished to proceed with arthroscopic intervention. She was scheduled for this. Questions were answered and consents were signed in the office. Procedure: Patient was brought to the operating theater and after undergoing adequate general anesthesia, ASA 3, intubated, the patient's right lower extremity was prepped and draped in usual fashion utilizing DuraPrep. A tourniquet was placed high on the leg prior to prepping and draping. The tourniquet was elevated prior to commencement of the surgical procedure to 250 mmHg. Total tourniquet time was 34 minutes. Elevation followed prepping and exsanguination. Prior to commencement of the surgical procedure, a surgical pause was performed. At the time of the surgical pause, we identified the site and side of surgery. We also confirm the patient's identity and appropriate and timely administration of preoperative antibiotics. Preoperative surgical markings were also visualized at this time. Standard arthroscopic portals were utilized including superolateral, inferomedial, and inferolateral portals. The examination commenced in the suprapatellar pouch area where the patient was noted to have chondromalacia on the undersurface of the patella. The arthroscope was then passed in the medial compartment where there was noted to be anterior horn medial meniscal tear associated with synovitis. The arthroscope was then passed across the notch area where anterior cruciate ligament was visualized and found to be intact. The scope was passed into the lateral compartment with the knee in a [id number] position. Lateral meniscus was noted to have significant inner rim tearing consistent with degenerative osteoarthritic change. Additionally, there was chondromalacia of the lateral tibial plateau. A chondroplasty was performed of this area. The lateral meniscus was addressed with a combination of the intra-articular shaver and the heat wand. The midportion of the meniscus was nearly absent following resection. Once lateral meniscus had been thus prepared it was palpated and found to be intact and not displaceable into the knee joint. Scope was then returned to the medial compartment where anterior horn the medial meniscus was shaved and a basket forcep was used to further address the anterior horn meniscal tear. The meniscus was palpated and found to be not displaceable into the knee joint. The arthroscope was then returned to the patellofemoral joint where a chondroplasty was performed of the undersurface of the patella. This chondroplasty involved use of the intra-articular shaver as well as the heat wand. Once the patella had been addressed, the scope was passed back through the knee compartments to evaluate for other abnormalities. Finding none, attention was directed to closure. The knee was copiously irrigated and suctioned dry. Following this, each portal was closed with a simple suture followed by Dermabond and OpSite. Additionally, the knee was injected with 20 mL of half percent ropivacaine and 8 mg of morphine. Additional 10 mL of ropivacaine was placed about the portals. Sterile dressing was placed consisting of the OpSite followed by the Luis Felipe wrap. Patient was returned to Recovery Room in satisfactory condition where she will be discharged home to follow-up with me in the office as scheduled. There were no complications and no specimens. Related Problem List Diagnoses (1) Tear of medial meniscus of right knee, current: (2) Tear of lateral meniscus of right knee: (3) Primary osteoarthritis of right knee:
--- NOTE | 2023-10-11 14:10 | ANE.PACU2 ---
Inpatient post-anesthesia follow up: Airway intact: Yes Vital signs: Temperature 97.4 F Pulse Rate 62 Respiratory Rate 18 Blood Pressure 131/84 Pulse Oximetry 99 Oxygen Delivery Me thod Room Air Oxygen Flow Rate 6 Fraction of Inspir ed Oxygen Hydration adequate: Yes Nausea and vomiting: No Pain level: 1 Mental status: Baseline
== END 2023-10-11 14:10 | disposition home or self-care (01) ==
PROVIDERS: Anesthesiology; PCP Nurse Practitioner Family; Visit Provider Specialist
PROC: (CPT 29870; principal; 2023-10-11 09:55)
DX: S83.281A Other tear of lateral meniscus, current injury, right knee, initial encounter (principal); S83.241A Other tear of medial meniscus, current injury, right knee, initial encounter; X58.XXXA Exposure to other specified factors, initial encounter; M17.11 Unilateral primary osteoarthritis, right knee; F17.200 Nicotine dependence, unspecified, uncomplicated; I10 Essential (primary) hypertension; E11.9 Type 2 diabetes mellitus without complications; Z79.84 Long term (current) use of oral hypoglycemic drugs
CPT/HCPCS: 29880; 36415; 80048; 81025; J0131; J0690; J1100; J2270; J2405; J2704; J2795; J3010; J3490; J7030

== ENCOUNTER → 2024-04-07 09:50 | Outpatient (BNVA) | payer MEDICAID, SELFPAY | PROVIDERS: PCP Nurse Practitioner Family; Visit Provider Internal Medicine | DX: E06.3 Autoimmune thyroiditis (principal); R53.83 Other fatigue; F32.A Depression, unspecified; E01.0 Iodine-deficiency related diffuse (endemic) goiter; G47.33 Obstructive sleep apnea (adult) (pediatric); R00.2 Palpitations | CPT/HCPCS: 36415; 84439; 84443 ==

== ENCOUNTER → 2024-04-14 15:31 | Outpatient (BNVA) | payer MEDICAID, SELFPAY | PROVIDERS: PCP Nurse Practitioner Family; Visit Provider Nurse Practitioner | DX: M17.11 Unilateral primary osteoarthritis, right knee (principal); S83.241A Other tear of medial meniscus, current injury, right knee, initial encounter; S83.206A Unspecified tear of unspecified meniscus, current injury, right knee, initial encounter; Z98.890 Other specified postprocedural states; X58.XXXA Exposure to other specified factors, initial encounter | CPT/HCPCS: 73560; 73565 ==

== ENCOUNTER 2024-05-08 07:56 | Outpatient (CLI) | payer MEDICAID, SELFPAY ==
--- NOTE | 2024-05-08 07:59 | MR_ITS ---
WS: [id number] MRI RIGHT KNEE ARTHROGRAM TECHNIQUE: Axial PD, coronal PD fat sat, coronal PD, sagittal PD, and sagittal PD fat-sat images obtained. Arthrogram images obtained after intra-articular administration of gadolinium CLINICAL INFORMATION: M17.11 - Unilateral primary osteoarthritis, right knee COMPARISON: 02/28/2023 FINDINGS: Distal quadriceps and patella tendons appear intact. Normal ACL and PCL. Blunting of the anterior horn lateral meniscus presumably due to prior meniscectomy. Normal posterior horn lateral meniscus. Mild chronic thinning of the medial meniscus which appears intact. Medial and lateral patellar retinaculum appear intact. Post arthrogram images demonstrate no acute tears of the medial or lateral meniscus. Grade III chondromalacia patella with chondral fissuring. Medial and lateral patellar retinaculum appear intact. Medial and lateral collateral ligaments appear intact. Normal popliteus. Evidence of interval plica resection. Recommend correlation with surgical history. No other significant interval changes. MR/MR knee RT wo/w con [id number] IMPRESSION: 1. Evidence of prior postoperative changes meniscectomy anterior horn lateral meniscus. This is stable compared to previous 2. No acute appearing meniscal tears today. 3. ACL and PCL appear intact. 4. Grade III chondromalacia patella with interval patella chondroplasty. No guzmán bchondral edema. No significant progression. 5. ACL and PCL appear intact. 6. Medial and lateral collateral ligaments appear intact. 7. No other significant interval changes. Outbridge grading: grade III: partial-thickness cartilage loss with focal ulcer ation
--- NOTE | 2024-05-08 08:00 | IR_ITS ---
WS: [id number] RIGHT KNEE ARTHROGRAM Fluoroscopic guided right knee arthrogram. CLINICAL INFORMATION: M17.11 - Unilateral primary osteoarthritis, right knee TECHNIQUE: The procedure including risks, benefits, and complications were discussed with the patient, who agreed to proceed. Timeout was performed. Using sterile technique, the patient was prepped and draped in the usual sterile fashion. After 1% lidocaine injection using fluoroscopic guidance, a 22-gauge spinal needle was advanced into the RIGHT patellofemoral compartment. Subsequently 40 cc of a mixture containing 30 cc normal saline, 10 cc Omnipaque 300, and 0.2 cc gadolinium was administered. No immediate complications. FLUOROSCOPY TIME: 0min [id number] # of spot films: 3 IR/[place] [id number] IMPRESSION: Uncomplicated right knee fluoroscopic guided arthrogram. MRI to follow.
[2024-05-08] MEDS: iohexol 240 mg/mL 50 mL Btl 20 ML INTRA-ARTI (11:09)
[2024-05-08] MEDS: gadobenate dimeglumine 20 mL vial 3 ML IV (11:14)
== END 2024-05-08 07:57 | disposition home or self-care (01) ==
PROVIDERS: PCP Nurse Practitioner Family; Visit Provider Nurse Practitioner
DX: M17.11 Unilateral primary osteoarthritis, right knee (principal); Z98.890 Other specified postprocedural states; M22.41 Chondromalacia patellae, right knee; R93.6 Abnormal findings on diagnostic imaging of limbs
CPT/HCPCS: 27369; 73723; 77002